=== PATIENT | female | born 1935 | race Caucasian/White ===

== ENCOUNTER → 2017-02-18 | Outpatient (CLI) | payer MEDICARE, BC ==
[~2017-02-18] MED LIST: LEVO200T6 PO; METF500T4 PO; MULT1TAB8 PO; TRIA1TAB PO
--- NOTE | 2017-02-19 10:02 | RADRPT ---
PROCEDURE: XR Knee. CLINICAL INDICATION: Trauma TECHNIQUE: [place] patellar, AP, lateral and oblique view of the right knee were obtained. COMPARISON: There are no similar studies submitted for comparison. FINDINGS: Osteoarthritic changes of the knee are noted with tricompartmental joint space narrowing and osteoph yte formation most prominent along the medial compartment. There is no acute fracture or dislocatio n.No destructive lesion is identified. There is no joint effusion. IMPRESSION: No fracture or dislocation. RPTAT: HIKT .Alphonso Chávez MD, MD Date Time Electronically viewed and signed by .Alphonso Chávez MD, MD on 02/19/2017 00:31 .T/
--- NOTE | 2017-02-19 10:56 | HKNOTE ---
DATE OF SERVICE: 02/18/2017 MAIN COMPLAINT: Pain in the right knee. HISTORY OF MAIN COMPLAINT: The patient is an 81-year-old female, who underwent a left knee replacement which was performed by me in November 2015. She had been extremely pleased with the result of the surgery. She now complains of pain in her right knee. The pain has been present full more than a year, but has become much more severe in the past few months. She saw Dr. Jennings, who injected the knee with cortisone, this did not give her much relief. Dr. Jennings has now referred to me for further evaluation and treatment. The patient complains the knee does not lock, swell, or feel unstable. Pain is aggravated by walking and stair climbing. She does not have rest pain or night pain. She uses a cane most of the time. She has difficulty clipping her toenails and tying her shoelaces. Sporting activities: [employer] 3 times a week (continues with this at present). PAST ORTHOPEDIC HISTORY: Left knee replacement. 11/17/[address] Benjamin Fernandes at [facility]. She has been very pleased with the results of the surgery. PRIOR CORTISONE INTAKE: Multiple cortisone injections in the past into both knees. ALCOHOL INTAKE: Minimal. OTHER JOINT PROBLEMS: None. BLOOD TESTS FOR ARTHRITIS: None. PAST MEDICAL HISTORY: Diabetes. PAST SURGICAL HISTORY: 1. Tonsillectomy in 1990. 2. Appendectomy in 2001. 3. Left replacement in 2012. FAMILY HISTORY: Father at 72 of bowel blockage. Mother at 73 from heart problems. SYSTEMS REVIEW: Excess urination, excess night urination. Diabetes. PHYSICAL EXAMINATION: GENERAL: A fit looking 81-year-old female, she comes in with her daughter. VITAL SIGNS: Height 5 foot 3. Weight 215 pounds. Blood pressure 125/60, temperature 97.6. The patient has an antalgic gait. DIRECTED PHYSICAL EXAMINATION: Both hips show full range of motion without pain. Examination of the right knee: Varus alignment. Extension lacks 15 degrees. Flexion lacks 20 degrees. Marked pain on attempting to exceed that range of motion. 6+ crepitus in the knee and under the patella. Examination of the left knee: A full range of motion. Midline scar of total knee replacement. IMAGING: Plain x-rays of the right knee obtained today were reviewed. These exhibit exceedingly severe degenerative changes of the medial compartment and patellofemoral joint with osteophyte formation, bone on bone contact and subchondral sclerosis. DISCUSSION: A 81-year-old female, in fairly good health who had previously undergone a left knee replacement which was performed by me in 2012. She now has significant symptoms in the opposite knee. She does not get much response to cortisone injected into her knee. MANAGEMENT: Patient is advised that she most certainly will need to have a right knee replacement sooner or later. The patient is anxious to proceed some time in the near future. She will discuss scheduling her surgery with my electrician assistant, Arnulfo. We will need to work around Dr. Jennings's schedule since he will be going out of town on March 10 and returning on the . The patient is very anxious to proceed with the surgery. I spent considerable time discussing with her and her daughter the newer improvements in the technique. She was given on my booklet on knee arthritis and knee replacement surgery. Surgery will be scheduled to be performed in the near future. Dictated By: Benjamin Fernandes MD /[email or web address]/rhona /Document#: [id number]
== END | disposition home or self-care (01) ==
LOC: HKI 13:41
DX: M25.561 Pain in right knee (principal); Z96.652 Presence of left artificial knee joint
CPT/HCPCS: 73562; G0463

== ENCOUNTER → 2017-04-10 | Outpatient (CLI) | payer MEDICARE, BC ==
--- NOTE | 2017-04-13 14:18 | HKNOTE ---
DATE OF SERVICE: 04/10/2017 CHIEF COMPLAINT: Right knee pain. HISTORY OF THE PRESENT ILLNESS: Love is an 81-year-old female who is here for evaluation of her knees. The patient underwent a left total knee replacement some time ago and is doing well with madyson t. Currently, she feels limited by her right knee and is here to discuss her right knee replacement . The right knee pain is constant and increases with weightbearing activities and decreases with re st. She has tried medications and injections without much relief. She uses a cane for support and has been unable to walk long distances. She is considering knee replacement in the near future. PAST MEDICAL HISTORY: Significant for left total knee replacement as well as diabetes. REVIEW OF SYSTEMS: Negative for chest pain, shortness of breath, nausea, vomiting, or diarrhea. PHYSICAL EXAMINATION: This shows a pleasant female. She is awake, alert and oriented. Walks with a slight limp on her right side. The right knee has medial joint line tenderness, mild swelling was noted. Range of motion is 15 to 105 degrees with crepitus. There is mild varus alignment and no n eurovascular deficit. The left knee shows a healed incision with full range of motion. X-rays of t he right knee were done and show advanced osteoarthritis with complete loss of medial joint space an d osteophyte formation especially in the medial and patellofemoral compartment. ASSESSMENT AND PLAN: An 81-year-old female with advanced osteoarthritis of her right knee. The pat ient has failed conservative treatment with medications and injections over the past several months. She would like to proceed with right total knee replacement in the near future. Risks and benefit s of surgery were discussed, implant materials and surgical techniques were discussed. The patient will be scheduled for right knee replacement in the near future. Dictated By: CRISTAL UPTON/NTS Conf#: [id number] DID#: [id number]
== END | disposition home or self-care (01) ==
LOC: HKI 13:43
PROVIDERS: ATTEND Orthopaedic Surgery
DX: M17.11 Unilateral primary osteoarthritis, right knee (principal); E11.9 Type 2 diabetes mellitus without complications; Z96.652 Presence of left artificial knee joint
CPT/HCPCS: G0463

== ENCOUNTER → 2017-05-22 | Outpatient (CLI) | payer MEDICARE, BC ==
[~2017-05-22] MED LIST changes: +ASPI-664 PO; +ATOR40TA68 PO; +EMPA25TA PO; +LINA5TAB PO; +LISI-313 PO; +MAXZ25 PO; +OXYB5TAB22 PO
--- NOTE | 2017-06-13 06:49 | HKNOTE ---
DATE OF SERVICE: 05/22/2017 HISTORY OF PRESENT ILLNESS: Love is 81 years old. She is here for a preoperative visit related to her right total knee replacement that is scheduled for 05/27/2017. PLAN: Risks and benefits of surgical treatment were discussed with the patient including, but not l imited to bleeding, infection, scarring stiffness, injury to nerves and vessels, chronic pain, impla nt failure, need for further surgery. The patient understands and wishes to proceed. Dictated By: CRISTAL MAGUIRE MD UB/NTS Conf#: [id number] DID#: [id number]
== END | disposition home or self-care (01) ==
LOC: HKI 13:44
PROVIDERS: ATTEND Orthopaedic Surgery
DX: Z01.818 Encounter for other preprocedural examination (principal)
CPT/HCPCS: G0463

== ENCOUNTER 2017-05-26 07:30 | Inpatient (IN) | payer MEDICARE, BC ==
[~2017-05-26] VITALS: Ht 160 cm; Wt 98.5 kg
[~2017-05-26 07:30] MED LIST changes: -ASPI-664 PO; -ATOR40TA68 PO; -EMPA25TA PO; -LINA5TAB PO; -LISI-313 PO; -MAXZ25 PO; -OXYB5TAB22 PO
[2017-05-26] MEDS ORDERED: SOD CHLORIDE 0.9% IVPB ONE (18:00)
[2017-05-26] MEDS ORDERED: TRANEXAMIC ACID IVPB ONE (18:00)
[2017-05-27] VITALS (14 sets, daily range): BP systolic 118–153; BP diastolic 52–72; PULSE 75–92; RESP 17–20; Ht 160 cm; Wt 98.5 kg
[2017-05-27] MEDS ORDERED: DEXAMETHASONE 4 MG/ML 1 ML INJ IV SCH (06:00)
[2017-05-27] MEDS ORDERED: SOD CHLORIDE 0.9% IRR SCH ×2 (06:00)
[2017-05-27] MEDS ORDERED: ONDANSETRON 4 MG INJ IV SCH (06:00)
[2017-05-27] MEDS ORDERED: LACTATED RINGER'S 1,000 ML IV* SCH (06:00)
[2017-05-27] MEDS ORDERED: CELECOXIB 200 MG CAP PO SCH (06:00)
[2017-05-27] MEDS ORDERED: SOD CHLORIDE 0.9% IVPB SCH (06:00)
[2017-05-27] MEDS ORDERED: TRANEXAMIC ACID IVPB SCH (06:00)
[2017-05-27] MEDS ORDERED: CEFAZOLIN 2 GM/50 ML (PMX) 50 ML IVPB SCH (06:00)
[2017-05-27] MEDS ORDERED: ACETAMINOPHEN 1000MG/100ML IV 100 ML IVPB SCH (06:00)
[2017-05-27] MEDS ORDERED: LANSOPRAZOLE 30 MG CAP PO SCH (06:00)
[2017-05-27] MEDS ORDERED: TRANEXAMIC ACID IRR SCH ×2 (06:00)
[2017-05-27] MEDS ORDERED: CEFAZOLIN 1 GM INJ ONE (07:00)
[2017-05-27] MEDS ORDERED: ROPIVACAINE 0.2% 60 ML, CLONIDINE 100 MCG, EPINEPHrine 0.3 MG, KETOROLAC 30 MG, SOD CHL... INJ SCH ×5 (11:30)
[2017-05-27] MEDS ORDERED: ATOR40TA68 PO (11:39)
[2017-05-27] MEDS ORDERED: ASPI-664 PO (11:40)
[2017-05-27] MEDS ORDERED: OXYB5TAB22 PO (11:45)
[2017-05-27] MEDS ORDERED: MAXZ25 PO (11:45)
[2017-05-27] MEDS ORDERED: POLYMYXIN B 500000 UNIT INJ ONE (13:48)
[2017-05-27] MEDS ORDERED: MIDAZOLAM 1 MG/ML 2 ML INJ ONE (14:04)
[2017-05-27] MEDS ORDERED: METOCLOPRAMIDE 10 MG INJ ONE (14:04)
[2017-05-27] MEDS ORDERED: PROPOFOL 20 ML ONE (14:04)
[2017-05-27] MEDS ORDERED: ROPIVACAINE 0.5 % 30 ML VIAL ONE (14:04)
[2017-05-27] MEDS ORDERED: DEXAMETHASONE 4 MG/ML 1 ML INJ ONE (14:05)
--- NOTE | 2017-05-27 14:13 | HPN ---
Date/Time of Note Date/Time of Note DATE: 05/27/17 TIME: 14:12 Interval H&P Admission Note Pt. seen H&P reviewed: No system changes MELISSA SOTO MD May 27, 2017 14:13
[2017-05-27] MEDS ORDERED: FENTAnyl 50 MCG/ML VIAL ONE (14:14)
--- NOTE | 2017-05-27 15:41 | PDOCDIS ---
Discharge Instructions DIAGNOSIS Discharge Diagnosis Status Post Right total knee arthroplasty CONDITION Patient Condition: Good HOME CARE INSTRUCTIONS: Diet Instructions: Regular ACTIVITY: Activity Restrictions: Slowly Increase Activity Rest between Activity Avoid heavy lifting No Sexual Activity Do not Drive Do not operate Machinery Do not operate Power Tool Avoid Heavy Housework Keep Limb Elevated (2-3 pillows under the foot and ankle ONLY. May also apply cold therapy to the surgical area over the dressing. ) Weight Bearing (weight bear as tolerated with front wheeled walker) Bathing Restrictions: Shower (Keep Mepilex dressing on until post-op appointment. Keep area clean and dry. No water to the knee. ) FOLLOW UP/APPOINTMENTS Follow-up Plan Follow up at post-op appointment given at your pre-op visit. DEANNA ZAMUDIO PA-C May 27, 2017 15:41
[2017-05-27] MEDS ORDERED: KETOROLAC 15 MG INJ IV PRN (16:00)
[2017-05-27] MEDS ORDERED: NALOXONE (0.4 MG/ML) INJ IV PRN (16:00)
[2017-05-27] MEDS ORDERED: DIPHENHYDRAMINE 50 MG INJ IV PRN (16:00)
[2017-05-27] MEDS ORDERED: MAGNESIUM HYDROXIDE 30ML CUP PO PRN (16:00)
[2017-05-27] MEDS ORDERED: ASPIRIN (EC) 325 MG TAB PO ONE (16:00)
[2017-05-27] MEDS ORDERED: SENNA/DOCUSATE NA (8.6MG/50MG) TAB PO PRN (16:00)
[2017-05-27] MEDS ORDERED: NA PHOSPHATE/BIPHOS 133 ML ENEMA PR PRN (16:00)
[2017-05-27] MEDS ORDERED: ONDANSETRON 4 MG INJ IV PRN (16:00)
[2017-05-27] MEDS ORDERED: DOCUSATE SODIUM 100 MG CAP PO ONE (16:00)
[2017-05-27] MEDS ORDERED: MEPERIDINE 25 MG INJ IV PRN (16:00)
[2017-05-27] MEDS ORDERED: DIPHENHYDRAMINE 50 MG INJ IM PRN (16:00)
[2017-05-27] MEDS ORDERED: morphine (1 MG/ML) 10ML SYRINGE IV PRN ×3 (16:00)
[2017-05-27] MEDS ORDERED: BISACODYL 10 MG SUPP PR PRN (16:00)
[2017-05-27] MEDS ORDERED: oxyCODONE 5 MG TAB PO PRN ×3 (16:00)
[2017-05-27] MEDS ORDERED: BETHANECHOL 25 MG TAB PO PRN (16:00)
--- NOTE | 2017-05-27 16:08 | RADRPT ---
PROCEDURE: XR Knee. CLINICAL INDICATION: RT KNEE REPLACEMENT TECHNIQUE: AP the right knee was obtained. The image was reviewed on a PACS workstation. COMPARISON: None. FINDINGS: Postoperative or intraoperative view demonstrates right knee hardware placement, with a plate along the tibial plateau, and hardware in the medial and lateral femoral condyles. Hardware appears intact and in appropriate position. Soft tissue structures appear within normal limits. IMPRESSION: Hardware placement as described for knee arthroplasty. Near anatomic alignment on single AP view. RPTAT: HBST .Chaka Inman MD, MD Date Time Electronically viewed and signed by .Chaka Inman MD, on 05/27/2017 16:07 .T/
--- NOTE | 2017-05-27 16:36 | SIPON ---
Date/Time of Note Date/Time of Note DATE: 05/27/17 TIME: 16:34 Operative Report Preoperative Diagnosis right knee DJD Postoperative Diagnosis same Operation/Procedure Performed right TKA Surgeon see signature line hospital medical assistant Dr. Dereje Shaikh Second assist: DEANNA ZAMUDIO PA-C Anesthesia: spinal Estimated blood loss: 150 - 200 ml's Transfusion Required none Specimen bone Grafts/Implants DePuy 6 femur, 5 tibia, 7 poly, 35 patella Complications none CRISTAL MAGUIRE May 27, 2017 16:36
--- NOTE | 2017-05-27 16:41 | OPR ---
Date/Time of Note Date/Time of Note DATE: 05/27/17 TIME: 16:36 Operative Report Procedure Date: May 27, 2017 Preoperative Diagnosis Right knee osteoarthritis Postoperative Diagnosis Same Operation/Procedure Performed Right total knee replacement Surgeon see signature line Building Inspector Dereje Shaikh Second Building Inspector: DEANNA ZAMUDIO PA-C Anesthesia Type: spinal Estimated Blood Loss: 150 - 200 ml's Transfusion none Specimen Bone Grafts/Implants depuy size 6 femur, size 5 tibia, 7 mm polyethylene, 35 mm patella Tubes/Drains None Complications none Pt Condition Post Procedure: stable Disposition: PACU Indications The patient is an 81-year-old female with advanced osteoarthritis of her right knee that has not responded to conservative treatment Procedure Description Patient was placed supine on the operating room table. The right lower extremity was prepped and draped in usual manner. Preoperative antibiotics were administered. An anterior approach to the right knee was made. A mid vastus approach was made and the patella displaced laterally without everting it. Advanced osteoarthritis was encountered in the right knee. Using intramedullary alignment, the distal femoral cut was made in 5 of valgus. The femur was measured to be a size 6 from the ByRead knee system. Size 6 cutting block was placed in slight external rotation. Anterior posterior and chamfer cuts were made. The notch was cut in the distal femur to accommodate the posterior stabilized femoral component. PCL was sacrificed. Remnants of the menisci were removed. The tibia was cut using external alignment and the patella cut using a freehand technique. Trials were inserted including a size 6 femur size 5 tibia 35 patella and 7 mm of polyethylene. This resulted in a stable knee from 0-120 with good balance and tracking. The trials were then removed. X-rays were obtained prior to removal of trials and alignment confirmed. The trials were removed and the knee thoroughly irrigated. The knee was injected with Toradol and Marcaine. Hemostasis was confirmed and final implants were cemented in place including 6 narrow femur, 5 tibia, 7 mm of polyethylene, and 35 mm patella. The knee was stable from 0-120 with good balance and tracking. The knee was thoroughly irrigated and closed in layers using #1 Vicryl for arthrotomy and fascia, 2-0 Vicryl for subcutaneous tissue, 3 -0 Monocryl for the skin. She was transferred to the recovery room in stable condition CRISTAL MAGUIRE May 27, 2017 16:41
[2017-05-27] MEDS: ONDANSETRON 4 MG INJ IV SCH ×2 (17:35→21:58)
[2017-05-27] MEDS: CEFAZOLIN 1 GM/50 ML (PMX) 50 ML IVPB SCH (17:35)
[2017-05-27] MEDS: SOD CHLORIDE 0.9% 1,000 ML IV SCH (20:50)
[2017-05-27] MEDS ORDERED: ZOLPIDEM 5 MG TAB PO PRN (21:00)
[2017-05-27] MEDS: OXYBUTYNIN (XL) 5 MG TAB PO SCH (21:00)
[2017-05-27] MEDS: metFORMIN 500 MG TAB PO SCH (21:58)
[2017-05-27] MEDS: ATORVASTATIN 40 MG TAB PO SCH (21:58)
[2017-05-28] MEDS: CEFAZOLIN 1 GM/50 ML (PMX) 50 ML IVPB SCH ×2 (00:31→08:50)
[2017-05-28] MEDS ORDERED: GLUCAGON 1 MG INJ IM PRN (01:15)
[2017-05-28] MEDS ORDERED: GLUCOSE GEL 15 GRAM TUBE PO PRN ×2 (01:15)
[2017-05-28] MEDS ORDERED: DEXTROSE 50% 50 ML SYRINGE IV PRN ×2 (01:15)
[2017-05-28] MEDS ORDERED: GLUCOSE GEL 15 GRAM TUBE BUCCAL PRN (01:15)
[2017-05-28] MEDS ORDERED: ACCU-CHEK XX SCH (02:00)
[2017-05-28] MEDS: ONDANSETRON 4 MG INJ IV SCH ×2 (04:00→09:54)
[2017-05-28] MEDS: SOD CHLORIDE 0.9% 1,000 ML IV SCH ×2 (04:04→16:44)
[2017-05-28 05:25] LABS: BASOPHILS % 0.1 % (0.0-2.0); HEMATOCRIT 37.1 % (37.0-47.0); HEMOGLOBIN 12.1 g/dl (12.0-16.0); LYMPHOCYTES # 1.3 10^3/ul (0.8-2.9); LYMPHOCYTES % 8.3 % (15.0-51.0); MEAN CORPUSCULAR HEMOGLOBIN 29.6 pg (29.0-33.0); MEAN CORPUSCULAR HGB CONC 32.6 g/dl (32.0-37.0); MEAN CORPUSCULAR VOLUME 90.7 fl (82.0-101.0); MEAN PLATELET VOLUME 11.2 fl (7.4-10.4); MONOCYTE # 0.9 10^3/ul (0.3-0.9); MONOCYTES % 5.9 % (0.0-11.0); NEUTROPHIL # 12.9 10^3/ul (1.6-7.5); NEUTROPHILS % 85.1 % (39.0-77.0); PLATELET COUNT 263 10^3/UL (140-415); RED BLOOD COUNT 4.09 10^6/ul (4.20-5.40); RED CELL DISTRIBUTION WIDTH 14.6 % (11.5-14.5); WHITE BLOOD COUNT 15.1 10^3/ul (4.8-10.8)
[2017-05-28 05:44] LABS: CALCIUM 8.1 mg/dl (8.4-10.2); CREATININE 0.85 mg/dl (0.44-1.00); POTASSIUM 4.3 mmol/L (3.5-5.1)
[2017-05-28 07:52] VITALS: BP 125/75; RESP 19
[2017-05-28] MEDS: DOCUSATE SODIUM 100 MG CAP PO SCH ×2 (08:50→20:40)
[2017-05-28] MEDS: ACCU-CHEK XX SCH ×4 (08:50→21:00)
[2017-05-28] MEDS: FERROUS FUMARATE (SR) TAB PO SCH ×2 (08:51→20:41)
[2017-05-28] MEDS: LEVOTHYROXINE 100 MCG TAB PO SCH (08:51)
[2017-05-28] MEDS: CELECOXIB 200 MG CAP PO SCH ×2 (08:51→20:38)
[2017-05-28] MEDS: ASPIRIN (EC) 325 MG TAB PO SCH (08:51)
[2017-05-28] MEDS: TRIAMTERENE/HCTZ (37.5-25) CAP PO SCH (08:52)
[2017-05-28] MEDS: INSULIN ASPART [NOVOLOG] 3 ML PEN SC SCH ×4 (09:55→20:45)
--- NOTE | 2017-05-28 11:09 | CONS ---
Date/Time of Note Date/Time of Note DATE: 05/28/17 TIME: 11:01 Consult Date/Type/Reason Admit Date/Time May 27, 2017 at 10:56 am Initial Consult Date Type of Consultation: internal medicine Reason for Consultation pre-op and post op evaluation and clearance Ordering Provider: CRISTAL MAGUIRE Subjective doing well no complaints glucose elevated today Objective Vital Signs Date Time Temp Pulse Resp B/P Pulse Ox O2 Delivery O2 Flow Rate FiO2 05/28/17 07:52 98.2 79 19 125/75 98 05/27/17 20:30 Nasal Cannula 05/27/17 19:02 2.0 Intake and Output 05/27/17 05/27/17 05/28/17 15:00 23:00 07:00 Intake Total 1000 ml 1250 ml Output Total 200 ml 1150 ml Balance 800 ml 100 ml Exam vss heent negative lungs clear heart regular rhythm abdomen soft Results/Medications Result Diagram: 05/28/17 0454 05/28/17 0454 Results 24 hrs Laboratory Tests Test 05/27/17 13:13 05/27/17 17:19 05/27/17 20:52 05/28/17 04:54 Bedside Glucose 153 217 235 H White Blood Count 15.1 #H Red Blood Count 4.09 L Hemoglobin 12.1 Hematocrit 37.1 Mean Corpuscular Volume 90.7 Mean Corpuscular Hemoglobin 29.6 Mean Corpuscular Hemoglobin Concent 32.6 Red Cell Distribution Width 14.6 H Platelet Count 263 Mean Platelet Volume 11.2 #H Neutrophils % 85.1 H Lymphocytes % 8.3 L Monocytes % 5.9 Eosinophils % 0.0 Basophils % 0.1 Nucleated Red Blood Cells % 0.0 Neutrophils # 12.9 H Lymphocytes # 1.3 Monocytes # 0.9 Eosinophils # 0.0 Basophils # 0.0 Nucleated Red Blood Cells # 0.0 Sodium Level 139 Potassium Level 4.3 Chloride Level 106 Carbon Dioxide Level 21 Anion Gap 16 Blood Urea Nitrogen 23 H Creatinine 0.85 Glucose Level 334 H Calcium Level 8.1 L Test 05/28/17 08:44 Bedside Glucose 304 H Medications Current Medications Sodium Chloride (NS) 1,000 ml @ 80 mls/hr [id number] IV Last administered on t 20:50; Admin Dose 80 MLS/HR; Start 05/27/17 at 15:44 Oxycodone HCl (Roxicodone) 20 mg Q3H PRN PO PAIN LEVEL 8-10; Start 05/27/17 at 16:00 Oxycodone HCl (Roxicodone) 10 mg Q3H PRN PO PAIN LEVEL 4-7; Start 05/27/17 at 16:00 Oxycodone HCl (Roxicodone) 5 mg Q3H PRN PO PAIN LEVEL 1-3; Start 05/27/17 at 16:00 Zolpidem Tartrate (Ambien) 5 mg HS PRN PO INSOMNIA; Start 05/27/17 at 21:00 Aspirin (Ecotrin) 325 mg DAILY PO Last administered on 05/28/17 08:51; Admin Dose 325 MG; Start 05/28/17 at 09:00 Celecoxib (Celebrex) 100 mg BID PO Last administered on 05/28/17 08:51; Admin Dose 100 MG; Start 05/28/17 at 09:00 Pantoprazole (Protonix Tab) 40 mg DAILY@06 PO ; Start 05/29/17 at 06:00 Docusate Sodium/ Ferrous Fumarate (Ima-Sequels) 1 tab BID PO Last administered on 05/28/17 08:51; Admin Dose 1 TAB; Start 05/28/17 at 09:00 Docusate Sodium (Colace) 200 mg BID PO Last administered on 05/28/17 08:50; Admin Dose 200 MG; Start 05/28/17 at 09:00; Stop 05/31/17 at 08:59 Simethicone (Mylicon) 80 mg TID PRN PO DISTENSION/GAS/BLOATING; Start at 16:00 Senna/Docusate Sodium (Senokot-S) 2 tab BID PRN PO CONSTIPATION; Start at 16:00 Magnesium Hydroxide (Milk Of Mag) 30 ml HS PRN PO CONSTIPATION; Start at 16:00 Bisacodyl (Dulcolax Supp) 10 mg DAILY PRN [place] CONSTIPATION; Start 05/27/17 at 16:00 Sodium Biphosphate/ Sodium Phosphate (Fleet Enema) 133 ml DAILY PRN [place] CONSTIPATION; Start 05/27/17 at 16:00 Diphenhydramine HCl (Benadryl) 25 mg Q4H PRN IM ITCHING OR RASH; Start at 16:00 Ketorolac Tromethamine (Toradol) 15 mg Q6 PRN IV PAIN; Start 05/27/17 at 16:00 ; Stop 05/31/17 at 15:59 Naloxone HCl (Narcan) 0.2 mg Q2M PRN IV DECREASED REPIRATORY RATE; Start at 16:00 Atorvastatin Calcium (Lipitor) 40 mg QHS PO Last administered on 05/27/17 21: 58; Admin Dose 40 MG; Start 05/27/17 at 21:00 Levothyroxine Sodium (Synthroid) 200 mcg DAILY PO Last administered on 08:51; Admin Dose 200 MCG; Start 05/28/17 at 09:00 Metformin HCl (Glucophage) 1,000 mg HS PO Last administered on 05/27/17 21:58 ; Admin Dose 1,000 MG; Start 05/27/17 at 21:00 Oxybutynin Chloride (Ditropan Xl) 5 mg QHS PO ; Start 05/27/17 at 21:00 Triamterene/HCTZ (Dyazide) 1 cap DAILY PO Last administered on 05/28/17 08:52 ; Admin Dose 1 CAP; Start 05/28/17 at 09:00 Miscellaneous Information 1 ea NOTE XX ; Start 05/28/17 at 01:15 Glucose (Glutose) 15 gm Q15M PRN PO DECREASED GLUCOSE; Start 05/28/17 at 01:15 Glucose (Glutose) 22.5 gm Q15M PRN PO DECREASED GLUCOSE; Start 05/28/17 at 01: 15 Dextrose (D50w Syringe) 25 ml Q15M PRN IV DECREASED GLUCOSE; Start 05/28/17 at 01:15 Dextrose (D50w Syringe) 50 ml Q15M PRN IV DECREASED GLUCOSE; Start 05/28/17 at 01:15 Glucagon (Glucagen) 1 mg Q15M PRN IM DECREASED GLUCOSE; Start 05/28/17 at 01: 15 Glucose (Glutose) 15 gm Q15M PRN BUCCAL DECREASED GLUCOSE; Start 05/28/17 at 01:15 Diagnostic Test (Pha) (Accu-Chek) 1 ea 02 XX ; Start 05/29/17 at 02:00 Assessment/Plan Chief Complaint/Hosp Course patient post op total knee replacement doing well from surgical standpoint.DM could be under better control insulin coverage ordered and diet switched to diabetic diet Problems: Additional Assessment/Plan patient ambulating well with pt management per ortho will follow thank you BRANDON Valadez MD May 28, 2017 11:09 am
--- NOTE | 2017-05-28 11:24 | PN ---
Date/Time of Note Date/Time of Note DATE: 05/28/17 TIME: :22 Assessment/Plan VTE Prophylaxis VTE Prophylaxis Intervention: ambulation, anti-embolic stocking, SCD's Lines/Catheters IV Catheter Type (from Nrsg): Saline Lock Urinary Cath still in place: No Subjective 24 Hr Interval Summary Free Text/Dictation Love is doing well after right total knee replacement. She is ambulatory with physical therapy. Pain is controlled with oral pain medication. The dressing is intact and dry. Range of motion of the right knee is 10-80. She would like to go home on Thursday morning. This will be arranged along with home health. Exam/Review of Systems Vital Signs Vitals Vital Signs Date Time Temp Pulse Resp B/P Pulse Ox O2 Delivery O2 Flow Rate FiO2 05/28/17 07:52 98.2 79 19 125/75 98 05/27/17 20:30 Nasal Cannula 05/27/17 19:02 2.0 Intake and Output 05/27/17 05/27/17 05/28/17 15:00 23:00 07:00 Intake Total 1000 ml 1250 ml Output Total 200 ml 1150 ml Balance 800 ml 100 ml Results Result Diagram: 05/28/17 0454 05/28/17 0454 Results 24 hrs Laboratory Tests Test 05/27/17 13:13 05/27/17 17:19 05/27/17 20:52 05/28/17 04:54 Bedside Glucose 153 217 235 H White Blood Count 15.1 #H Red Blood Count 4.09 L Hemoglobin 12.1 Hematocrit 37.1 Mean Corpuscular Volume 90.7 Mean Corpuscular Hemoglobin 29.6 Mean Corpuscular Hemoglobin Concent 32.6 Red Cell Distribution Width 14.6 H Platelet Count 263 Mean Platelet Volume 11.2 #H Neutrophils % 85.1 H Lymphocytes % 8.3 L Monocytes % 5.9 Eosinophils % 0.0 Basophils % 0.1 Nucleated Red Blood Cells % 0.0 Neutrophils # 12.9 H Lymphocytes # 1.3 Monocytes # 0.9 Eosinophils # 0.0 Basophils # 0.0 Nucleated Red Blood Cells # 0.0 Sodium Level 139 Potassium Level 4.3 Chloride Level 106 Carbon Dioxide Level 21 Anion Gap 16 Blood Urea Nitrogen 23 H Creatinine 0.85 Glucose Level 334 H Calcium Level 8.1 L Test 05/28/17 08:44 Bedside Glucose 304 H Medications Medications Current Medications Sodium Chloride (NS) 1,000 ml @ 80 mls/hr [id number] IV Last administered on 20:50; Admin Dose 80 MLS/HR; Start 05/27/17 at 15:44 Oxycodone HCl (Roxicodone) 20 mg Q3H PRN PO PAIN LEVEL 8-10; Start 05/27/17 at 16:00 Oxycodone HCl (Roxicodone) 10 mg Q3H PRN PO PAIN LEVEL 4-7; Start 05/27/17 at 16:00 Oxycodone HCl (Roxicodone) 5 mg Q3H PRN PO PAIN LEVEL 1-3; Start 05/27/17 at 16:00 Zolpidem Tartrate (Ambien) 5 mg HS PRN PO INSOMNIA; Start 05/27/17 at 21:00 Aspirin (Ecotrin) 325 mg DAILY PO Last administered on 05/28/17 08:51; Admin Dose 325 MG; Start 05/28/17 at 09:00 Celecoxib (Celebrex) 100 mg BID PO Last administered on 05/28/17 08:51; Admin Dose 100 MG; Start 05/28/17 at 09:00 Pantoprazole (Protonix Tab) 40 mg DAILY@06 PO ; Start 05/29/17 at 06:00 Docusate Sodium/ Ferrous Fumarate (Iam-Sequels) 1 tab BID PO Last administered on 05/28/17 08:51; Admin Dose 1 TAB; Start 05/28/17 at 09:00 Docusate Sodium (Colace) 200 mg BID PO Last administered on 05/28/17 08:50; Admin Dose 200 MG; Start 05/28/17 at 09:00; Stop 05/31/17 at 08:59 Simethicone (Mylicon) 80 mg TID PRN PO DISTENSION/GAS/BLOATING; Start at 16:00 Senna/Docusate Sodium (Senokot-S) 2 tab BID PRN PO CONSTIPATION; Start at 16:00 Magnesium Hydroxide (Milk Of Mag) 30 ml HS PRN PO CONSTIPATION; Start at 16:00 Bisacodyl (Dulcolax Supp) 10 mg DAILY PRN [place] CONSTIPATION; Start 05/27/17 at 16:00 Sodium Biphosphate/ Sodium Phosphate (Fleet Enema) 133 ml DAILY PRN [place] CONSTIPATION; Start 05/27/17 at 16:00 Diphenhydramine HCl (Benadryl) 25 mg Q4H PRN IM ITCHING OR RASH; Start at 16:00 Ketorolac Tromethamine (Toradol) 15 mg Q6 PRN IV PAIN; Start 05/27/17 at 16:00 ; Stop 05/31/17 at 15:59 Naloxone HCl (Narcan) 0.2 mg Q2M PRN IV DECREASED REPIRATORY RATE; Start at 16:00 Atorvastatin Calcium (Lipitor) 40 mg QHS PO Last administered on 05/27/17 21: 58; Admin Dose 40 MG; Start 05/27/17 at 21:00 Levothyroxine Sodium (Synthroid) 200 mcg DAILY PO Last administered on 08:51; Admin Dose 200 MCG; Start 05/28/17 at 09:00 Metformin HCl (Glucophage) 1,000 mg HS PO Last administered on 05/27/17 21:58 ; Admin Dose 1,000 MG; Start 05/27/17 at 21:00 Oxybutynin Chloride (Ditropan Xl) 5 mg QHS PO ; Start 05/27/17 at 21:00 Triamterene/HCTZ (Dyazide) 1 cap DAILY PO Last administered on 05/28/17 08:52 ; Admin Dose 1 CAP; Start 05/28/17 at 09:00 Miscellaneous Information 1 ea NOTE XX ; Start 05/28/17 at 01:15 Glucose (Glutose) 15 gm Q15M PRN PO DECREASED GLUCOSE; Start 05/28/17 at 01:15 Glucose (Glutose) 22.5 gm Q15M PRN PO DECREASED GLUCOSE; Start 05/28/17 at 01: 15 Dextrose (D50w Syringe) 25 ml Q15M PRN IV DECREASED GLUCOSE; Start 05/28/17 at 01:15 Dextrose (D50w Syringe) 50 ml Q15M PRN IV DECREASED GLUCOSE; Start 05/28/17 at 01:15 Glucagon (Glucagen) 1 mg Q15M PRN IM DECREASED GLUCOSE; Start 05/28/17 at 01: 15 Glucose (Glutose) 15 gm Q15M PRN BUCCAL DECREASED GLUCOSE; Start 05/28/17 at 01:15 Diagnostic Test (Pha) (Accu-Chek) 1 ea 02 XX ; Start 05/29/17 at 02:00 CRISTAL MAGUIRE May 28, 2017 11:24
--- NOTE | 2017-05-28 11:37 | PN ---
Date/Time of Note Date/Time of Note DATE: 05/28/17 TIME: 11:35 Assessment/Plan VTE Prophylaxis VTE Prophylaxis Intervention: SCD's Lines/Catheters IV Catheter Type (from Nrsg): Saline Lock Urinary Cath still in place: No Subjective 24 Hr Interval Summary Free Text/Dictation addendum to dr gonzáles note the blood sugars are running high, has been on metformin at home, but after dexamethasone needing low intensity novolog, will continue to follow, expect steroid effect to wear off before dc alert, has walked well and gone to toilet bp is ok Exam/Review of Systems Vital Signs Vitals Vital Signs Date Time Temp Pulse Resp B/P Pulse Ox O2 Delivery O2 Flow Rate FiO2 05/28/17 07:52 98.2 79 19 125/75 98 05/27/17 20:30 Nasal Cannula 05/27/17 19:02 2.0 Intake and Output 05/27/17 05/27/17 05/28/17 15:00 23:00 07:00 Intake Total 1000 ml 1250 ml Output Total 200 ml 1150 ml Balance 800 ml 100 ml Results Result Diagram: 05/28/17 0454 05/28/17 0454 Results 24 hrs Laboratory Tests Test 05/27/17 13:13 05/27/17 17:19 05/27/17 20:52 05/28/17 04:54 Bedside Glucose 153 217 235 H White Blood Count 15.1 #H Red Blood Count 4.09 L Hemoglobin 12.1 Hematocrit 37.1 Mean Corpuscular Volume 90.7 Mean Corpuscular Hemoglobin 29.6 Mean Corpuscular Hemoglobin Concent 32.6 Red Cell Distribution Width 14.6 H Platelet Count 263 Mean Platelet Volume 11.2 #H Neutrophils % 85.1 H Lymphocytes % 8.3 L Monocytes % 5.9 Eosinophils % 0.0 Basophils % 0.1 Nucleated Red Blood Cells % 0.0 Neutrophils # 12.9 H Lymphocytes # 1.3 Monocytes # 0.9 Eosinophils # 0.0 Basophils # 0.0 Nucleated Red Blood Cells # 0.0 Sodium Level 139 Potassium Level 4.3 Chloride Level 106 Carbon Dioxide Level 21 Anion Gap 16 Blood Urea Nitrogen 23 H Creatinine 0.85 Glucose Level 334 H Calcium Level 8.1 L Test 05/28/17 08:44 Bedside Glucose 304 H Medications Medications Current Medications Sodium Chloride (NS) 1,000 ml @ 80 mls/hr [id number] IV Last administered on 20:50; Admin Dose 80 MLS/HR; Start 05/27/17 at 15:44 Oxycodone HCl (Roxicodone) 20 mg Q3H PRN PO PAIN LEVEL 8-10; Start 05/27/17 at 16:00 Oxycodone HCl (Roxicodone) 10 mg Q3H PRN PO PAIN LEVEL 4-7; Start 05/27/17 at 16:00 Oxycodone HCl (Roxicodone) 5 mg Q3H PRN PO PAIN LEVEL 1-3; Start 05/27/17 at 16:00 Zolpidem Tartrate (Ambien) 5 mg HS PRN PO INSOMNIA; Start 05/27/17 at 21:00 Aspirin (Ecotrin) 325 mg DAILY PO Last administered on 05/28/17 08:51; Admin Dose 325 MG; Start 05/28/17 at 09:00 Celecoxib (Celebrex) 100 mg BID PO Last administered on 05/28/17 08:51; Admin Dose 100 MG; Start 05/28/17 at 09:00 Pantoprazole (Protonix Tab) 40 mg DAILY@06 PO ; Start 05/29/17 at 06:00 Docusate Sodium/ Ferrous Fumarate (Iam-Sequels) 1 tab BID PO Last administered on 05/28/17 08:51; Admin Dose 1 TAB; Start 05/28/17 at 09:00 Docusate Sodium (Colace) 200 mg BID PO Last administered on 05/28/17 08:50; Admin Dose 200 MG; Start 05/28/17 at 09:00; Stop 05/31/17 at 08:59 Simethicone (Mylicon) 80 mg TID PRN PO DISTENSION/GAS/BLOATING; Start at 16:00 Senna/Docusate Sodium (Senokot-S) 2 tab BID PRN PO CONSTIPATION; Start at 16:00 Magnesium Hydroxide (Milk Of Mag) 30 ml HS PRN PO CONSTIPATION; Start at 16:00 Bisacodyl (Dulcolax Supp) 10 mg DAILY PRN [place] CONSTIPATION; Start 05/27/17 at 16:00 Sodium Biphosphate/ Sodium Phosphate (Fleet Enema) 133 ml DAILY PRN [place] CONSTIPATION; Start 05/27/17 at 16:00 Diphenhydramine HCl (Benadryl) 25 mg Q4H PRN IM ITCHING OR RASH; Start at 16:00 Ketorolac Tromethamine (Toradol) 15 mg Q6 PRN IV PAIN; Start 05/27/17 at 16:00 ; Stop 05/31/17 at 15:59 Naloxone HCl (Narcan) 0.2 mg Q2M PRN IV DECREASED REPIRATORY RATE; Start at 16:00 Atorvastatin Calcium (Lipitor) 40 mg QHS PO Last administered on 05/27/17 21: 58; Admin Dose 40 MG; Start 05/27/17 at 21:00 Levothyroxine Sodium (Synthroid) 200 mcg DAILY PO Last administered on 08:51; Admin Dose 200 MCG; Start 05/28/17 at 09:00 Metformin HCl (Glucophage) 1,000 mg HS PO Last administered on 05/27/17 21:58 ; Admin Dose 1,000 MG; Start 05/27/17 at 21:00 Oxybutynin Chloride (Ditropan Xl) 5 mg QHS PO ; Start 05/27/17 at 21:00 Triamterene/HCTZ (Dyazide) 1 cap DAILY PO Last administered on 05/28/17 08:52 ; Admin Dose 1 CAP; Start 05/28/17 at 09:00 Miscellaneous Information 1 ea NOTE XX ; Start 05/28/17 at 01:15 Glucose (Glutose) 15 gm Q15M PRN PO DECREASED GLUCOSE; Start 05/28/17 at 01:15 Glucose (Glutose) 22.5 gm Q15M PRN PO DECREASED GLUCOSE; Start 05/28/17 at 01: 15 Dextrose (D50w Syringe) 25 ml Q15M PRN IV DECREASED GLUCOSE; Start 05/28/17 at 01:15 Dextrose (D50w Syringe) 50 ml Q15M PRN IV DECREASED GLUCOSE; Start 05/28/17 at 01:15 Glucagon (Glucagen) 1 mg Q15M PRN IM DECREASED GLUCOSE; Start 05/28/17 at 01: 15 Glucose (Glutose) 15 gm Q15M PRN BUCCAL DECREASED GLUCOSE; Start 05/28/17 at 01:15 Diagnostic Test (Pha) (Accu-Chek) 1 ea 02 XX ; Start 05/29/17 at 02:00 RICHY AGUILERA MD May 28, 2017 11:37
--- NOTE | 2017-05-28 14:37 | CONS ---
Date/Time of Note Date/Time of Note DATE: 05/28/17 TIME: 14:33 Assessment/Plan Assessment/Plan Additional Assessment/Plan Status post knee surgery 05/27/2017 Hypertension Diabetes -Patient has done well status post surgery yesterday and ambulating today without symptoms of shortness of breath, dizziness or chest pain. Blood pressure trend has been overall been well controlled. No new cardiac orders at the current time. Consultation Date/Type/Reason Admit Date/Time May 27, 2017 at 10:56 am Type of Consultation: cv Reason for Consultation Cardiology evaluation Hx of Present Illness This is an 81-year-old female with history of hypertension, diabetes who is status post elective knee surgery. Patient underwent the procedure yesterday . She currently denies any chest pain, shortness of breath, palpitations or dizziness. She was ambulating with physical therapy today without any symptoms as mentioned above. 12 point review of systems was performed with all pertinent positives and negatives mentioned above and all else is negative Past Medical History Arthritis Medical History: diabetes, hypertension Past Surgical History Orthopedic procedures Family History Significant Family History: no pertinent family hx Exam/Review of Systems Vital Signs Vitals Vital Signs Date Time Temp Pulse Resp B/P Pulse Ox O2 Delivery O2 Flow Rate FiO2 05/28/17 07:52 98.2 79 19 125/75 98 05/27/17 20:30 Nasal Cannula 05/27/17 19:02 2.0 Intake and Output 05/27/17 05/27/17 05/28/17 15:00 23:00 07:00 Intake Total 1000 ml 1250 ml Output Total 200 ml 1150 ml Balance 800 ml 100 ml Exam No apparent distress Constitutional: alert, obese, oriented Head: normocephalic Neck: supple Respiratory: clear to auscultation, normal air movement Cardiovascular: other (S1-S2 heard), regular rate and rhythm Gastrointestinal: bowel sounds, non-tender, soft Extremities: edema (Trace) Results Result Diagram: 05/28/17 0454 05/28/17 0454 Results 24 hrs Laboratory Tests Test 05/27/17 17:19 05/27/17 20:52 05/28/17 04:54 05/28/17 08:44 Bedside Glucose 217 235 H 304 H White Blood Count 15.1 #H Red Blood Count 4.09 L Hemoglobin 12.1 Hematocrit 37.1 Mean Corpuscular Volume 90.7 Mean Corpuscular Hemoglobin 29.6 Mean Corpuscular Hemoglobin Concent 32.6 Red Cell Distribution Width 14.6 H Platelet Count 263 Mean Platelet Volume 11.2 #H Neutrophils % 85.1 H Lymphocytes % 8.3 L Monocytes % 5.9 Eosinophils % 0.0 Basophils % 0.1 Nucleated Red Blood Cells % 0.0 Neutrophils # 12.9 H Lymphocytes # 1.3 Monocytes # 0.9 Eosinophils # 0.0 Basophils # 0.0 Nucleated Red Blood Cells # 0.0 Sodium Level 139 Potassium Level 4.3 Chloride Level 106 Carbon Dioxide Level 21 Anion Gap 16 Blood Urea Nitrogen 23 H Creatinine 0.85 Glucose Level 334 H Calcium Level 8.1 L Test 05/28/17 12:45 Bedside Glucose 259 H Medications Medications Current Medications Sodium Chloride (NS) 1,000 ml @ 80 mls/hr [id number] IV Last administered on 20:50; Admin Dose 80 MLS/HR; Start 05/27/17 at 15:44 Oxycodone HCl (Roxicodone) 20 mg Q3H PRN PO PAIN LEVEL 8-10; Start 05/27/17 at 16:00 Oxycodone HCl (Roxicodone) 10 mg Q3H PRN PO PAIN LEVEL 4-7; Start 05/27/17 at 16:00 Oxycodone HCl (Roxicodone) 5 mg Q3H PRN PO PAIN LEVEL 1-3; Start 05/27/17 at 16:00 Zolpidem Tartrate (Ambien) 5 mg HS PRN PO INSOMNIA; Start 05/27/17 at 21:00 Aspirin (Ecotrin) 325 mg DAILY PO Last administered on 05/28/17 08:51; Admin Dose 325 MG; Start 05/28/17 at 09:00 Celecoxib (Celebrex) 100 mg BID PO Last administered on 05/28/17 08:51; Admin Dose 100 MG; Start 05/28/17 at 09:00 Pantoprazole (Protonix Tab) 40 mg DAILY@06 PO ; Start 05/29/17 at 06:00 Docusate Sodium/ Ferrous Fumarate (Iam-Sequels) 1 tab BID PO Last administered on 05/28/17 08:51; Admin Dose 1 TAB; Start 05/28/17 at 09:00 Docusate Sodium (Colace) 200 mg BID PO Last administered on 05/28/17 08:50; Admin Dose 200 MG; Start 05/28/17 at 09:00; Stop 05/31/17 at 08:59 Simethicone (Mylicon) 80 mg TID PRN PO DISTENSION/GAS/BLOATING; Start at 16:00 Senna/Docusate Sodium (Senokot-S) 2 tab BID PRN PO CONSTIPATION; Start at 16:00 Magnesium Hydroxide (Milk Of Mag) 30 ml HS PRN PO CONSTIPATION; Start at 16:00 Bisacodyl (Dulcolax Supp) 10 mg DAILY PRN [place] CONSTIPATION; Start 05/27/17 at 16:00 Sodium Biphosphate/ Sodium Phosphate (Fleet Enema) 133 ml DAILY PRN [place] CONSTIPATION; Start 05/27/17 at 16:00 Diphenhydramine HCl (Benadryl) 25 mg Q4H PRN IM ITCHING OR RASH; Start at 16:00 Ketorolac Tromethamine (Toradol) 15 mg Q6 PRN IV PAIN; Start 05/27/17 at 16:00 ; Stop 05/31/17 at 15:59 Naloxone HCl (Narcan) 0.2 mg Q2M PRN IV DECREASED REPIRATORY RATE; Start at 16:00 Atorvastatin Calcium (Lipitor) 40 mg QHS PO Last administered on 05/27/17 21: 58; Admin Dose 40 MG; Start 05/27/17 at 21:00 Levothyroxine Sodium (Synthroid) 200 mcg DAILY PO Last administered on 08:51; Admin Dose 200 MCG; Start 05/28/17 at 09:00 Metformin HCl (Glucophage) 1,000 mg HS PO Last administered on 05/27/17 21:58 ; Admin Dose 1,000 MG; Start 05/27/17 at 21:00 Oxybutynin Chloride (Ditropan Xl) 5 mg QHS PO ; Start 05/27/17 at 21:00 Triamterene/HCTZ (Dyazide) 1 cap DAILY PO Last administered on 05/28/17 08:52 ; Admin Dose 1 CAP; Start 05/28/17 at 09:00 Miscellaneous Information 1 ea NOTE XX ; Start 05/28/17 at 01:15 Glucose (Glutose) 15 gm Q15M PRN PO DECREASED GLUCOSE; Start 05/28/17 at 01:15 Glucose (Glutose) 22.5 gm Q15M PRN PO DECREASED GLUCOSE; Start 05/28/17 at 01: 15 Dextrose (D50w Syringe) 25 ml Q15M PRN IV DECREASED GLUCOSE; Start 05/28/17 at 01:15 Dextrose (D50w Syringe) 50 ml Q15M PRN IV DECREASED GLUCOSE; Start 05/28/17 at 01:15 Glucagon (Glucagen) 1 mg Q15M PRN IM DECREASED GLUCOSE; Start 05/28/17 at 01: 15 Glucose (Glutose) 15 gm Q15M PRN BUCCAL DECREASED GLUCOSE; Start 05/28/17 at 01:15 Diagnostic Test (Pha) (Accu-Chek) 1 ea 02 XX ; Start 05/29/17 at 02:00 Gorge Hammer DO May 28, 2017 14:37
[2017-05-28 19:55] VITALS: BP 152/70; RESP 22
[2017-05-28] MEDS: OXYBUTYNIN (XL) 5 MG TAB PO SCH (20:39)
[2017-05-28] MEDS: ATORVASTATIN 40 MG TAB PO SCH (20:39)
[2017-05-28] MEDS: metFORMIN 500 MG TAB PO SCH (20:40)
[2017-05-29] MEDS ORDERED: ACCU-CHEK XX SCH (02:00)
[2017-05-29 02:08] VITALS: BP 156/72; RESP 22
[2017-05-29] MEDS: SOD CHLORIDE 0.9% 1,000 ML IV SCH ×2 (05:14→17:44)
[2017-05-29] MEDS: PANTOPRAZOLE (EC) 40 MG TAB PO SCH (06:00)
[2017-05-29 06:11] LABS: BASOPHILS % 0.4 % (0.0-2.0); EOSINOPHILS # 0.1 10^3/ul (0.0-0.5); EOSINOPHILS % 1.3 % (0.0-7.0); HEMATOCRIT 26.8 % (37.0-47.0); HEMOGLOBIN 8.6 g/dl (12.0-16.0); LYMPHOCYTES # 2.7 10^3/ul (0.8-2.9); LYMPHOCYTES % 33.5 % (15.0-51.0); MEAN CORPUSCULAR HGB CONC 32.1 g/dl (32.0-37.0); MEAN CORPUSCULAR VOLUME 93.4 fl (82.0-101.0); MEAN PLATELET VOLUME 12.2 fl (7.4-10.4); MONOCYTE # 0.8 10^3/ul (0.3-0.9); MONOCYTES % 9.7 % (0.0-11.0); NEUTROPHIL # 4.5 10^3/ul (1.6-7.5); NEUTROPHILS % 54.6 % (39.0-77.0); RED BLOOD COUNT 2.87 10^6/ul (4.20-5.40); RED CELL DISTRIBUTION WIDTH 14.8 % (11.5-14.5); WHITE BLOOD COUNT 8.2 10^3/ul (4.8-10.8)
[2017-05-29 06:31] LABS: CALCIUM 8.8 mg/dl (8.4-10.2); CREATININE 0.78 mg/dl (0.44-1.00); POTASSIUM 4.5 mmol/L (3.5-5.1)
[2017-05-29 06:52] LABS: PLATELET COUNT 351 10^3/UL (140-415); POSITIVE DIFF @See below
[2017-05-29] MEDS: ACCU-CHEK XX SCH ×4 (07:20→21:00)
[2017-05-29 07:49] VITALS: BP 166/77; RESP 21
--- NOTE | 2017-05-29 09:01 | PN ---
Date/Time of Note Date/Time of Note DATE: 05/29/17 TIME: 08:59 Assessment/Plan VTE Prophylaxis VTE Prophylaxis Intervention: ambulation, SCD's, other (Aspirin 325 mg) Lines/Catheters IV Catheter Type (from Nrsg): Saline Lock Salgado in Place (from Nrsg): No Assessment/Plan Assessment/Plan -Pain Meds as needed -Dressing is clean and intact. -OOB with PT -ASA/SCDs for DVT Prophylaxis -Continue monitoring with Internal Medicine -Patient Stable -Expected plan to discharge tomorrow home with home health. Subjective 24 Hr Interval Summary 81-year-old female postop day 2 status post right total knee arthroplasty. Patient continues with physical therapy as she has been up and walking throughout the hallways. Denies any acute overnight events. No chest pain/ tightness. Patient is sitting comfortably in chair currently. Constitutional: no complaints Pain Control: well controlled Exam/Review of Systems Vital Signs Vitals Vital Signs Date Time Temp Pulse Resp B/P Pulse Ox O2 Delivery O2 Flow Rate FiO2 05/29/17 07:49 97.6 71 21 166/77 96 05/27/17 20:30 Nasal Cannula 05/27/17 19:02 2.0 Intake and Output 05/28/17 05/28/17 05/29/17 14:59 22:59 06:59 Intake Total 300 ml 600 ml 500 ml Output Total 780 ml 600 ml Balance 300 ml -180 ml -100 ml Exam Free Text/Dictation -No complications with dressing intact. -5/5 Tibialis Anterior, EHL Gastrocnemius/Soleus and Peroneals -Seated comfortably in chair with knee at 90. Patient is able to extend the leg with about 5 lag from full extension. -Normal Sensation -Palpable DP/PT, Capillary Refill <2 secs -No Distal Edema -Negative Everardo Sign/No calf pain -Toes Freely Movable Constitutional: alert, oriented, well developed Results Result Diagram: 05/29/17 0457 05/29/17 0457 DEANNA ZAMUDIO PA-C May 29, 2017 09:01
[2017-05-29] MEDS: ASPIRIN (EC) 325 MG TAB PO SCH (09:03)
[2017-05-29] MEDS: FERROUS FUMARATE (SR) TAB PO SCH ×2 (09:03→20:41)
[2017-05-29] MEDS: TRIAMTERENE/HCTZ (37.5-25) CAP PO SCH (09:04)
[2017-05-29] MEDS: DOCUSATE SODIUM 100 MG CAP PO SCH ×2 (09:04→20:42)
[2017-05-29] MEDS: INSULIN ASPART [NOVOLOG] 3 ML PEN SC SCH ×7 (09:06→21:00)
--- NOTE | 2017-05-29 10:36 | PN ---
Date/Time of Note Date/Time of Note DATE: 05/29/17 TIME: 10:34 Assessment/Plan VTE Prophylaxis VTE Prophylaxis Intervention: SCD's Lines/Catheters [facility] Saline Lock Urinary Cath still in place: No Assessment/Plan Chief Complaint/Hosp Course patient post op total knee replacement doing well from surgical standpoint.DM could be under better control insulin coverage ordered and diet switched to diabetic diet Problems: Assessment/Plan patient progressing well blood sugars improving with current insulin regimen.doing better today Subjective 24 Hr Interval Summary Constitutional: no complaints Eyes: no complaints ENT: no complaints Respiratory: no complaints Cardiovascular: no complaints Gastrointestinal: no complaints Genitourinary: no complaints Musculoskeletal: no complaints Skin: no complaints Psychological: no complaints Exam/Review of Systems Vital Signs Vitals Vital Signs Date Time Temp Pulse Resp B/P Pulse Ox O2 Delivery O2 Flow Rate FiO2 05/29/17 07:49 97.6 71 21 166/77 96 05/27/17 20:30 Nasal Cannula 05/27/17 19:02 2.0 Intake and Output 05/28/17 05/28/17 05/29/17 15:00 23:00 07:00 Intake Total 300 ml 600 ml 500 ml Output Total 780 ml 600 ml Balance 300 ml -180 ml -100 ml Results Result Diagram: 05/29/17 0457 05/29/17 0457 Results 24 hrs Laboratory Tests Test 05/28/17 12:45 05/28/17 17:46 05/28/17 20:37 05/29/17 02:05 Bedside Glucose 259 H 326 H 246 H 223 H Test 05/29/17 04:57 05/29/17 08:35 White Blood Count 8.2 # Red Blood Count 2.87 #L Hemoglobin 8.6 #L Hematocrit 26.8 #L Mean Corpuscular Volume 93.4 Mean Corpuscular Hemoglobin 30.0 Mean Corpuscular Hemoglobin Concent 32.1 Red Cell Distribution Width 14.8 H Platelet Count 351 # Mean Platelet Volume 12.2 H Neutrophils % 54.6 Lymphocytes % 33.5 Monocytes % 9.7 Eosinophils % 1.3 Basophils % 0.4 Nucleated Red Blood Cells % 0.0 Neutrophils # 4.5 Lymphocytes # 2.7 Monocytes # 0.8 Eosinophils # 0.1 Basophils # 0.0 Nucleated Red Blood Cells # 0.0 Sodium Level 140 Potassium Level 4.5 Chloride Level 106 Carbon Dioxide Level 26 Anion Gap 13 Blood Urea Nitrogen 22 H Creatinine 0.78 Glucose Level 172 # Calcium Level 8.8 Bedside Glucose 166 Medications Medications Current Medications Sodium Chloride (NS) 1,000 ml @ 80 mls/hr [id number] IV Last administered on 20:50; Admin Dose 80 MLS/HR; Start 05/27/17 at 15:44 Oxycodone HCl (Roxicodone) 20 mg Q3H PRN PO PAIN LEVEL 8-10; Start 05/27/17 at 16:00 Oxycodone HCl (Roxicodone) 10 mg Q3H PRN PO PAIN LEVEL 4-7; Start 05/27/17 at 16:00 Oxycodone HCl (Roxicodone) 5 mg Q3H PRN PO PAIN LEVEL 1-3; Start 05/27/17 at 16:00 Zolpidem Tartrate (Ambien) 5 mg HS PRN PO INSOMNIA; Start 05/27/17 at 21:00 Aspirin (Ecotrin) 325 mg DAILY PO Last administered on 05/29/17 09:03; Admin Dose 325 MG; Start 05/28/17 at 09:00 Pantoprazole (Protonix Tab) 40 mg DAILY@06 PO ; Start 05/29/17 at 06:00 Docusate Sodium/ Ferrous Fumarate (Iam-Sequels) 1 tab BID PO Last administered on 05/29/17 09:03; Admin Dose 1 TAB; Start 05/28/17 at 09:00 Docusate Sodium (Colace) 200 mg BID PO Last administered on 05/29/17 09:04; Admin Dose 200 MG; Start 05/28/17 at 09:00; Stop 05/31/17 at 08:59 Simethicone (Mylicon) 80 mg TID PRN PO DISTENSION/GAS/BLOATING; Start at 16:00 Senna/Docusate Sodium (Senokot-S) 2 tab BID PRN PO CONSTIPATION; Start at 16:00 Magnesium Hydroxide (Milk Of Mag) 30 ml HS PRN PO CONSTIPATION; Start at 16:00 Bisacodyl (Dulcolax Supp) 10 mg DAILY PRN [place] CONSTIPATION; Start 05/27/17 at 16:00 Sodium Biphosphate/ Sodium Phosphate (Fleet Enema) 133 ml DAILY PRN [place] CONSTIPATION; Start 05/27/17 at 16:00 Diphenhydramine HCl (Benadryl) 25 mg Q4H PRN IM ITCHING OR RASH; Start at 16:00 Ketorolac Tromethamine (Toradol) 15 mg Q6 PRN IV PAIN; Start 05/27/17 at 16:00 ; Stop 05/31/17 at 15:59 Naloxone HCl (Narcan) 0.2 mg Q2M PRN IV DECREASED REPIRATORY RATE; Start at 16:00 Atorvastatin Calcium (Lipitor) 40 mg QHS PO Last administered on 05/28/17 20: 39; Admin Dose 40 MG; Start 05/27/17 at 21:00 Levothyroxine Sodium (Synthroid) 200 mcg DAILY PO Last administered on 08:51; Admin Dose 200 MCG; Start 05/28/17 at 09:00 Metformin HCl (Glucophage) 1,000 mg HS PO Last administered on 05/28/17 20:40 ; Admin Dose 1,000 MG; Start 05/27/17 at 21:00 Oxybutynin Chloride (Ditropan Xl) 5 mg QHS PO Last administered on 05/28/17 20:39; Admin Dose 5 MG; Start 05/27/17 at 21:00 Triamterene/HCTZ (Dyazide) 1 cap DAILY PO Last administered on 05/29/17 09:04 ; Admin Dose 1 CAP; Start 05/28/17 at 09:00 Miscellaneous Information 1 ea NOTE XX ; Start 05/28/17 at 01:15 Glucose (Glutose) 15 gm Q15M PRN PO DECREASED GLUCOSE; Start 05/28/17 at 01:15 Glucose (Glutose) 22.5 gm Q15M PRN PO DECREASED GLUCOSE; Start 05/28/17 at 01: 15 Dextrose (D50w Syringe) 25 ml Q15M PRN IV DECREASED GLUCOSE; Start 05/28/17 at 01:15 Dextrose (D50w Syringe) 50 ml Q15M PRN IV DECREASED GLUCOSE; Start 05/28/17 at 01:15 Glucagon (Glucagen) 1 mg Q15M PRN IM DECREASED GLUCOSE; Start 05/28/17 at 01: 15 Glucose (Glutose) 15 gm Q15M PRN BUCCAL DECREASED GLUCOSE; Start 05/28/17 at 01:15 Diagnostic Test (Pha) (Accu-Chek) 1 XX ; Start 05/29/17 at 02:00 Diagnostic Test (Pha) (Accu-Chek) 1 XX ; Start 05/30/17 at 02:00 Insulin Glargine (Lantus) 20 unit DAILY@20 SC ; Start 05/29/17 at 20:00 Linagliptin (Tradjenta) 5 mg DAILY PO ; Start 05/29/17 at 09:00 Celecoxib (Celebrex) 100 mg BID PO ; Start 05/29/17 at 21:00 BRANDON RUSH MD May 29, 2017 10:36
[2017-05-29] MEDS: LINAGLIPTIN 5 MG TABLET PO SCH (10:45)
[2017-05-29] MEDS: LEVOTHYROXINE 100 MCG TAB PO SCH (10:45)
--- NOTE | 2017-05-29 13:00 | CONS ---
Date/Time of Note Date/Time of Note DATE: 05/29/17 TIME: 12:58 Assessment/Plan Assessment/Plan Additional Assessment/Plan Status post knee surgery 05/27/2017 Hypertension Diabetes -Blood pressure on the higher side today the patient with increased pain and has been more anxious. Given history of diabetes, would benefit from BRODERICK inhibitor. We will start low-dose with holding parameters. Consultation Date/Type/Reason Admit Date/Time May 27, 2017 at 10:56 Initial Consult Date Type of Consultation: cv Referring Provider: CRISTAL MAGUIRE 24 HR Interval Summary Free Text/Dictation Patient a little more anxious today with increased pain. Blood pressure has been noticed on the higher side Exam/Review of Systems Vital Signs Vitals Vital Signs Date Time Temp Pulse Resp B/P Pulse Ox O2 Delivery O2 Flow Rate FiO2 05/29/17 07:49 97.6 71 21 166/77 96 05/27/17 20:30 Nasal Cannula 05/27/17 19:02 2.0 Intake and Output 05/28/17 05/28/17 05/29/17 15:00 23:00 07:00 Intake Total 300 ml 600 ml 500 ml Output Total 780 ml 600 ml Balance 300 ml -180 ml -100 ml Exam No apparent distress Constitutional: alert, obese, oriented Head: normocephalic Respiratory: clear to auscultation, normal air movement Cardiovascular: other (S1-S2 heard), regular rate and rhythm, systolic murmur Gastrointestinal: bowel sounds, non-tender, soft Extremities: edema (Trace) Results Result Diagram: 05/29/17 0457 05/29/17 0457 Results 24 hrs Laboratory Tests Test 05/28/17 17:46 05/28/17 20:37 05/29/17 02:05 05/29/17 04:57 Bedside Glucose 326 H 246 H 223 H White Blood Count 8.2 # Red Blood Count 2.87 #L Hemoglobin 8.6 #L Hematocrit 26.8 #L Mean Corpuscular Volume 93.4 Mean Corpuscular Hemoglobin 30.0 Mean Corpuscular Hemoglobin Concent 32.1 Red Cell Distribution Width 14.8 H Platelet Count 351 # Mean Platelet Volume 12.2 H Neutrophils % 54.6 Lymphocytes % 33.5 Monocytes % 9.7 Eosinophils % 1.3 Basophils % 0.4 Nucleated Red Blood Cells % 0.0 Neutrophils # 4.5 Lymphocytes # 2.7 Monocytes # 0.8 Eosinophils # 0.1 Basophils # 0.0 Nucleated Red Blood Cells # 0.0 Sodium Level 140 Potassium Level 4.5 Chloride Level 106 Carbon Dioxide Level 26 Anion Gap 13 Blood Urea Nitrogen 22 H Creatinine 0.78 Glucose Level 172 # Calcium Level 8.8 Test 05/29/17 08:35 05/29/17 11:17 05/29/17 12:38 Bedside Glucose 166 157 Hemoglobin A1c 8.7 H Medications Medications Current Medications Sodium Chloride (NS) 1,000 ml @ 80 mls/hr [id number] IV Last administered on 20:50; Admin Dose 80 MLS/HR; Start 05/27/17 at 15:44 Oxycodone HCl (Roxicodone) 20 mg Q3H PRN PO PAIN LEVEL 8-10; Start 05/27/17 at 16:00 Oxycodone HCl (Roxicodone) 10 mg Q3H PRN PO PAIN LEVEL 4-7; Start 05/27/17 at 16:00 Oxycodone HCl (Roxicodone) 5 mg Q3H PRN PO PAIN LEVEL 1-3; Start 05/27/17 at 16:00 Zolpidem Tartrate (Ambien) 5 mg HS PRN PO INSOMNIA; Start 05/27/17 at 21:00 Aspirin (Ecotrin) 325 mg DAILY PO Last administered on 05/29/17 09:03; Admin Dose 325 MG; Start 05/28/17 at 09:00 Pantoprazole (Protonix Tab) 40 mg DAILY@06 PO ; Start 05/29/17 at 06:00 Docusate Sodium/ Ferrous Fumarate (Iam-Sequels) 1 tab BID PO Last administered on 05/29/17 09:03; Admin Dose 1 TAB; Start 05/28/17 at 09:00 Docusate Sodium (Colace) 200 mg BID PO Last administered on 05/29/17 09:04; Admin Dose 200 MG; Start 05/28/17 at 09:00; Stop 05/31/17 at 08:59 Simethicone (Mylicon) 80 mg TID PRN PO DISTENSION/GAS/BLOATING; Start at 16:00 Senna/Docusate Sodium (Senokot-S) 2 tab BID PRN PO CONSTIPATION; Start at 16:00 Magnesium Hydroxide (Milk Of Mag) 30 ml HS PRN PO CONSTIPATION; Start at 16:00 Bisacodyl (Dulcolax Supp) 10 mg DAILY PRN [place] CONSTIPATION; Start 05/27/17 at 16:00 Sodium Biphosphate/ Sodium Phosphate (Fleet Enema) 133 ml DAILY PRN [place] CONSTIPATION; Start 05/27/17 at 16:00 Diphenhydramine HCl (Benadryl) 25 mg Q4H PRN IM ITCHING OR RASH; Start at 16:00 Ketorolac Tromethamine (Toradol) 15 mg Q6 PRN IV PAIN; Start 05/27/17 at 16:00 ; Stop 05/31/17 at 15:59 Naloxone HCl (Narcan) 0.2 mg Q2M PRN IV DECREASED REPIRATORY RATE; Start at 16:00 Atorvastatin Calcium (Lipitor) 40 mg QHS PO Last administered on 05/28/17 20: 39; Admin Dose 40 MG; Start 05/27/17 at 21:00 Levothyroxine Sodium (Synthroid) 200 mcg DAILY PO Last administered on 10:45; Admin Dose 200 MCG; Start 05/28/17 at 09:00 Metformin HCl (Glucophage) 1,000 mg HS PO Last administered on 05/28/17 20:40 ; Admin Dose 1,000 MG; Start 05/27/17 at 21:00 Oxybutynin Chloride (Ditropan Xl) 5 mg QHS PO Last administered on 05/28/17 20:39; Admin Dose 5 MG; Start 05/27/17 at 21:00 Triamterene/HCTZ (Dyazide) 1 cap DAILY PO Last administered on 05/29/17 09:04 ; Admin Dose 1 CAP; Start 05/28/17 at 09:00 Miscellaneous Information 1 ea NOTE XX ; Start 05/28/17 at 01:15 Glucose (Glutose) 15 gm Q15M PRN PO DECREASED GLUCOSE; Start 05/28/17 at 01:15 Glucose (Glutose) 22.5 gm Q15M PRN PO DECREASED GLUCOSE; Start 05/28/17 at 01: 15 Dextrose (D50w Syringe) 25 ml Q15M PRN IV DECREASED GLUCOSE; Start 05/28/17 at 01:15 Dextrose (D50w Syringe) 50 ml Q15M PRN IV DECREASED GLUCOSE; Start 05/28/17 at 01:15 Glucagon (Glucagen) 1 mg Q15M PRN IM DECREASED GLUCOSE; Start 05/28/17 at 01: 15 Glucose (Glutose) 15 gm Q15M PRN BUCCAL DECREASED GLUCOSE; Start 05/28/17 at 01:15 Diagnostic Test (Pha) (Accu-Chek) 1 ea 02 XX ; Start 05/29/17 at 02:00 Diagnostic Test (Pha) (Accu-Chek) 1 ea 02 XX ; Start 05/30/17 at 02:00 Insulin Glargine (Lantus) 20 unit DAILY@20 SC ; Start 05/29/17 at 20:00 Linagliptin (Tradjenta) 5 mg DAILY PO Last administered on 05/29/17t 10:45; Admin Dose 5 MG; Start 05/29/17 at 09:00 Celecoxib (Celebrex) 100 mg BID PO ; Start 05/29/17 at 21:00 Gorge Hammer DO May 29, 2017 13:00
[2017-05-29] MEDS: LISINOPRIL 5 MG TAB PO SCH (13:35)
[2017-05-29] MEDS ORDERED: INSULIN GLARGINE [LANtus] 3 ML PEN SC SCH (20:00)
[2017-05-29] MEDS: ATORVASTATIN 40 MG TAB PO SCH (20:41)
[2017-05-29] MEDS: OXYBUTYNIN (XL) 5 MG TAB PO SCH (20:41)
[2017-05-29] MEDS: metFORMIN 500 MG TAB PO SCH (20:42)
[2017-05-29] MEDS: CELECOXIB 100 MG CAP PO SCH (20:42)
[2017-05-29 21:40] VITALS: BP 138/63; RESP 19
[2017-05-30] MEDS ORDERED: ACCU-CHEK XX SCH (02:00)
[2017-05-30 02:54] VITALS: BP 129/76; RESP 19
[2017-05-30] MEDS: PANTOPRAZOLE (EC) 40 MG TAB PO SCH (06:00)
[2017-05-30] MEDS: SOD CHLORIDE 0.9% 1,000 ML IV SCH (06:14)
[2017-05-30] MEDS: ACCU-CHEK XX SCH ×2 (07:20→11:10)
[2017-05-30] MEDS: INSULIN ASPART [NOVOLOG] 3 ML PEN SC SCH ×4 (07:50→13:30)
[2017-05-30 07:56] VITALS: BP 134/67; RESP 18
--- NOTE | 2017-05-30 08:32 | PN ---
Date/Time of Note Date/Time of Note DATE: 05/30/17 TIME: 08:31 Assessment/Plan VTE Prophylaxis VTE Prophylaxis Intervention: SCD's Lines/Catheters IV Catheter Type (from Nrsg): Saline Lock Urinary Cath still in place: No Assessment/Plan Assessment/Plan Status post knee surgery 05/27/2017 Hypertension Diabetes -continue BP and DM management -ortho care -d/c plan ok from cardiac standpoint Subjective 24 Hr Interval Summary Free Text/Dictation The patient wiht no cahnge overnight Exam/Review of Systems Vital Signs Vitals Vital Signs Date Time Temp Pulse Resp B/P Pulse Ox O2 Delivery O2 Flow Rate FiO2 05/30/17 02:54 98.0 79 19 129/76 99 05/27/17 20:30 Nasal Cannula 05/27/17 19:02 2.0 Intake and Output 05/29/17 05/29/17 05/30/17 14:59 22:59 06:59 Intake Total 1600 ml Balance 1600 ml Results Result Diagram: 05/29/17 0457 05/29/17 0457 Results 24 hrs Laboratory Tests Test 05/29/17 08:35 05/29/17 11:17 05/29/17 12:38 05/29/17 17:32 Bedside Glucose 166 157 137 Hemoglobin A1c 8.7 H Test 05/29/17 20:39 Bedside Glucose 144 Medications Medications Current Medications Sodium Chloride (NS) 1,000 ml @ 80 mls/hr [id number] IV Last administered on 20:50; Admin Dose 80 MLS/HR; Start 05/27/17 at 15:44 Oxycodone HCl (Roxicodone) 20 mg Q3H PRN PO PAIN LEVEL 8-10; Start 05/27/17 at 16:00 Oxycodone HCl (Roxicodone) 10 mg Q3H PRN PO PAIN LEVEL 4-7; Start 05/27/17 at 16:00 Oxycodone HCl (Roxicodone) 5 mg Q3H PRN PO PAIN LEVEL 1-3; Start 05/27/17 at 16:00 Zolpidem Tartrate (Ambien) 5 mg HS PRN PO INSOMNIA; Start 05/27/17 at 21:00 Aspirin (Ecotrin) 325 mg DAILY PO Last administered on 05/29/17 09:03; Admin Dose 325 MG; Start 05/28/17 at 09:00 Pantoprazole (Protonix Tab) 40 mg DAILY@06 PO ; Start 05/29/17 at 06:00 Docusate Sodium/ Ferrous Fumarate (Iam-Sequels) 1 tab BID PO Last administered on 05/29/17 20:41; Admin Dose 1 TAB; Start 05/28/17 at 09:00 Docusate Sodium (Colace) 200 mg BID PO Last administered on 05/29/17 20:42; Admin Dose 200 MG; Start 05/28/17 at 09:00; Stop 05/31/17 at 08:59 Simethicone (Mylicon) 80 mg TID PRN PO DISTENSION/GAS/BLOATING; Start at 16:00 Senna/Docusate Sodium (Senokot-S) 2 tab BID PRN PO CONSTIPATION; Start at 16:00 Magnesium Hydroxide (Milk Of Mag) 30 ml HS PRN PO CONSTIPATION; Start at 16:00 Bisacodyl (Dulcolax Supp) 10 mg DAILY PRN [place] CONSTIPATION; Start 05/27/17 at 16:00 Sodium Biphosphate/ Sodium Phosphate (Fleet Enema) 133 ml DAILY PRN [place] CONSTIPATION; Start 05/27/17 at 16:00 Diphenhydramine HCl (Benadryl) 25 mg Q4H PRN IM ITCHING OR RASH; Start at 16:00 Ketorolac Tromethamine (Toradol) 15 mg Q6 PRN IV PAIN; Start 05/27/17 at 16:00 ; Stop 05/31/17 at 15:59 Naloxone HCl (Narcan) 0.2 mg Q2M PRN IV DECREASED REPIRATORY RATE; Start at 16:00 Atorvastatin Calcium (Lipitor) 40 mg QHS PO Last administered on 05/29/17 20: 41; Admin Dose 40 MG; Start 05/27/17 at 21:00 Levothyroxine Sodium (Synthroid) 200 mcg DAILY PO Last administered on 10:45; Admin Dose 200 MCG; Start 05/28/17 at 09:00 Metformin HCl (Glucophage) 1,000 mg HS PO Last administered on 05/29/17 20:42 ; Admin Dose 1,000 MG; Start 05/27/17 at 21:00 Oxybutynin Chloride (Ditropan Xl) 5 mg QHS PO Last administered on 05/29/17 20:41; Admin Dose 5 MG; Start 05/27/17 at 21:00 Triamterene/HCTZ (Dyazide) 1 cap DAILY PO Last administered on 05/29/17 09:04 ; Admin Dose 1 CAP; Start 05/28/17 at 09:00 Miscellaneous Information 1 ea NOTE XX ; Start 05/28/17 at 01:15 Glucose (Glutose) 15 gm Q15M PRN PO DECREASED GLUCOSE; Start 05/28/17 at 01:15 Glucose (Glutose) 22.5 gm Q15M PRN PO DECREASED GLUCOSE; Start 05/28/17 at 01: 15 Dextrose (D50w Syringe) 25 ml Q15M PRN IV DECREASED GLUCOSE; Start 05/28/17 at 01:15 Dextrose (D50w Syringe) 50 ml Q15M PRN IV DECREASED GLUCOSE; Start 05/28/17 at 01:15 Glucagon (Glucagen) 1 mg Q15M PRN IM DECREASED GLUCOSE; Start 05/28/17 at 01: 15 Glucose (Glutose) 15 gm Q15M PRN BUCCAL DECREASED GLUCOSE; Start 05/28/17 at 01:15 Diagnostic Test (Pha) (Accu-Chek) 1 ea 02 XX ; Start 05/30/17 at 02:00 Insulin Glargine (Lantus) 20 unit DAILY@20 SC Last administered on 05/29/17 20:46; Admin Dose 20 UNIT; Start 05/29/17 at 20:00 Linagliptin (Tradjenta) 5 mg DAILY PO Last administered on 05/29/17 10:45; Admin Dose 5 MG; Start 05/29/17 at 09:00 Celecoxib (Celebrex) 100 mg BID PO Last administered on 05/29/17 20:42; Admin Dose 100 MG; Start 05/29/17 at 21:00 Lisinopril (Zestril) 5 mg DAILY PO Last administered on 05/29/17 13:35; Admin Dose 5 MG; Start 05/29/17 at 13:00 RETA SCHULTZ MD May 30, 2017 08:31
[2017-05-30 09:16] LABS: BASOPHIL # 0.1 10^3/ul (0.0-0.1); BASOPHILS % 0.5 % (0.0-2.0); EOSINOPHILS # 0.2 10^3/ul (0.0-0.5); EOSINOPHILS % 1.9 % (0.0-7.0); HEMATOCRIT 35.8 % (37.0-47.0); HEMOGLOBIN 11.9 g/dl (12.0-16.0); LYMPHOCYTES # 2.3 10^3/ul (0.8-2.9); LYMPHOCYTES % 22.1 % (15.0-51.0); MEAN CORPUSCULAR HEMOGLOBIN 29.8 pg (29.0-33.0); MEAN CORPUSCULAR HGB CONC 33.2 g/dl (32.0-37.0); MEAN CORPUSCULAR VOLUME 89.5 fl (82.0-101.0); MEAN PLATELET VOLUME 11.2 fl (7.4-10.4); MONOCYTE # 0.9 10^3/ul (0.3-0.9); MONOCYTES % 9.2 % (0.0-11.0); NEUTROPHIL # 6.7 10^3/ul (1.6-7.5); NEUTROPHILS % 65.8 % (39.0-77.0); PLATELET COUNT 265 10^3/UL (140-415); RED CELL DISTRIBUTION WIDTH 14.8 % (11.5-14.5); WHITE BLOOD COUNT 10.2 10^3/ul (4.8-10.8)
[2017-05-30] MEDS: DOCUSATE SODIUM 100 MG CAP PO SCH (09:16)
[2017-05-30] MEDS: CELECOXIB 100 MG CAP PO SCH (09:16)
[2017-05-30] MEDS: LEVOTHYROXINE 100 MCG TAB PO SCH (09:16)
[2017-05-30] MEDS: FERROUS FUMARATE (SR) TAB PO SCH (09:16)
[2017-05-30] MEDS: ASPIRIN (EC) 325 MG TAB PO SCH (09:16)
[2017-05-30] MEDS: LINAGLIPTIN 5 MG TABLET PO SCH (09:17)
[2017-05-30] MEDS: LISINOPRIL 5 MG TAB PO SCH (09:19)
[2017-05-30] MEDS: TRIAMTERENE/HCTZ (37.5-25) CAP PO SCH (09:31)
[2017-05-30 09:38] LABS: CHOL/HDL RATIO 2.3 RATIO
[2017-05-30 09:39] LABS: CALCIUM 8.7 mg/dl (8.4-10.2); CREATININE 0.74 mg/dl (0.44-1.00); POTASSIUM 4.1 mmol/L (3.5-5.1)
[2017-05-30] MEDS ORDERED: LINA5TAB PO (10:24)
[2017-05-30] MEDS ORDERED: EMPA25TA PO (10:24)
[2017-05-30] MEDS ORDERED: LISI-313 PO (10:24)
--- NOTE | 2017-05-30 10:31 | PN ---
Date/Time of Note Date/Time of Note DATE: 05/30/17 TIME: 10:24 Assessment/Plan VTE Prophylaxis VTE Prophylaxis Intervention: SCD's Lines/Catheters IV Catheter Type (from Nrsg): Saline Lock Urinary Cath still in place: No Assessment/Plan Problems: (1) Type 2 diabetes mellitus with hyperglycemia Status: Chronic Comment: Cont. metformin 1,000 mg bid. However, this was not sufficient for glycemic control at home based on A1c and pt. should be on more medication on d/ c. Pt. doing well here on MDI but does not want to be on insulin after d/c. Have already added linagliptin and will also add empagliflozin w/ the hope that it will provide sufficient glycemic control after d/c (2) Essential (primary) hypertension Status: Chronic Comment: Cont. lisinopril and maxzide (3) Hypothyroidism Status: Chronic Comment: Cont. LT4 (4) Hyperlipidemia Status: Chronic Comment: Excellent control. Cont. statin (5) Urge incontinence Status: Chronic Comment: Cont. oxybutynin (6) Aftercare following right knee joint replacement surgery Status: Acute Comment: Doing well on POD#3. Likely ready for d/c. Will defer to primary team but ok for d/c from med perspective. Subjective 24 Hr Interval Summary Constitutional: improved, no complaints Respiratory: no complaints Cardiovascular: no complaints Gastrointestinal: no complaints Genitourinary: no complaints Musculoskeletal: bone/joint pain (R knee but tolerable and improved over all) Neurologic: no complaints Exam/Review of Systems Vital Signs Vitals VS - Last 72 Hours, by Label Date Time Temp Pulse Resp B/P Pulse Ox O2 Delivery O2 Flow Rate FiO2 05/30/17 07:56 97.8 89 18 134/67 96 05/30/17 02:54 98.0 79 19 129/76 99 05/29/17 21:40 98.3 84 19 138/63 99 05/29/17 07:49 97.6 71 21 166/77 96 05/29/17 02:08 97.5 82 22 156/72 97 05/28/17 19:55 97.5 75 22 152/70 97 05/28/17 07:52 98.2 79 19 125/75 98 05/27/17 23:45 98.2 92 18 130/63 98 05/27/17 20:30 Nasal Cannula 05/27/17 20:25 98.3 83 20 153/69 96 05/27/17 19:02 78 17 131/64 94 Nasal Cannula 2.0 05/27/17 18:19 78 17 135/64 98 Nasal Cannula 2.0 05/27/17 18:14 80 17 140/64 98 Nasal Cannula 2.0 05/27/17 18:09 82 17 131/61 98 Nasal Cannula 2.0 05/27/17 18:04 82 17 133/56 97 Nasal Cannula 2.0 05/27/17 17:59 82 17 133/52 97 Nasal Cannula 2.0 05/27/17 17:57 82 17 128/52 96 Nasal Cannula 2.0 05/27/17 17:52 84 18 132/64 98 Nasal Cannula 2.0 05/27/17 17:31 90 18 140/69 96 Nasal Cannula 2.0 05/27/17 17:19 92 18 128/67 96 Nasal Cannula 2.0 05/27/17 17:14 98.2 83 17 118/64 99 Mask 8.0 05/27/17 13:00 97.8 75 18 132/72 96 Room Air Vital Signs Date Time Temp Pulse Resp B/P Pulse Ox O2 Delivery O2 Flow Rate FiO2 05/30/17 07:56 97.8 89 18 134/67 96 05/27/17 20:30 Nasal Cannula 05/27/17 19:02 2.0 Intake and Output 05/29/17 05/29/17 05/30/17 14:59 22:59 06:59 Intake Total 1600 ml Balance 1600 ml Exam Constitutional: alert, obese, oriented Psych: nl mood/affect, no complaints Respiratory: clear to auscultation, normal air movement Cardiovascular: nl pulses, regular rate and rhythm, No edema, No murmurs/extra sounds, No rub Gastrointestinal: bowel sounds, nl liver, spleen, non-tender, soft, No mass, No rebound or guarding Musculoskeletal: nl extremities to inspection Extremities: normal pulses, No clubbing, No cyanosis, No edema Neurological: [employer] SAL[employer] II-XII intact, nl mental status, nl speech, nl strength Additional Comments Bedside Glucose - 72 Hours Test 05/27/17 13:13 05/27/17 17:19 05/27/17 20:52 05/28/17 08:44 Bedside Glucose 153mg/dL (70-220) 217mg/dL (70-220) 235mg/dL (70-220) H 304mg/dL (70-220) H Test 05/28/17 12:45 05/28/17 17:46 05/28/17 20:37 05/29/17 02:05 Bedside Glucose 259mg/dL (70-220) H 326mg/dL (70-220) H 246mg/dL (70-220) H 223mg/dL (70-220) H Test 05/29/17 08:35 05/29/17 12:38 05/29/17 17:32 05/29/17 20:39 Bedside Glucose 166mg/dL (70-220) 157mg/dL (70-220) 137mg/dL (70-220) 144mg/dL (70-220) Test 05/30/17 08:55 Bedside Glucose 132mg/dL (70-220) Results Result Diagram: 05/30/1782005/30/17 0821 Results 24 hrs Laboratory Tests Test 05/29/17 11:17 05/29/17 12:38 05/29/17 17:32 05/29/17 20:39 Hemoglobin A1c 8.7 H Bedside Glucose 157 137 144 Test 05/30/17 08:21 05/30/17 08:55 White Blood Count 10.2 # Red Blood Count 4.00 #L Hemoglobin 11.9 #L Hematocrit 35.8 #L Mean Corpuscular Volume 89.5 Mean Corpuscular Hemoglobin 29.8 Mean Corpuscular Hemoglobin Concent 33.2 Red Cell Distribution Width 14.8 H Platelet Count 265 # Mean Platelet Volume 11.2 H Neutrophils % 65.8 Lymphocytes % 22.1 Monocytes % 9.2 Eosinophils % 1.9 Basophils % 0.5 Nucleated Red Blood Cells % 0.0 Neutrophils # 6.7 Lymphocytes # 2.3 Monocytes # 0.9 Eosinophils # 0.2 Basophils # 0.1 Nucleated Red Blood Cells # 0.0 Sodium Level 137 Potassium Level 4.1 Chloride Level 100 Carbon Dioxide Level 28 Anion Gap 13 Blood Urea Nitrogen 21 H Creatinine 0.74 Glucose Level 129 # Calcium Level 8.7 Triglycerides Level 104 Cholesterol Level 124 LDL Cholesterol, Calculated 51 HDL Cholesterol 52 Cholesterol/HDL Ratio 2.3 Bedside Glucose 132 Medications Medications Current Medications Sodium Chloride (NS) 1,000 ml @ 80 mls/hr [id number] IV Last administered on 20:50; Admin Dose 80 MLS/HR; Start 05/27/17 at 15:44 Oxycodone HCl (Roxicodone) 20 mg Q3H PRN PO PAIN LEVEL 8-10; Start 05/27/17 at 16:00 Oxycodone HCl (Roxicodone) 10 mg Q3H PRN PO PAIN LEVEL 4-7; Start 05/27/17 at 16:00 Oxycodone HCl (Roxicodone) 5 mg Q3H PRN PO PAIN LEVEL 1-3; Start 05/27/17 at 16:00 Zolpidem Tartrate (Ambien) 5 mg HS PRN PO INSOMNIA; Start 05/27/17 at 21:00 Aspirin (Ecotrin) 325 mg DAILY PO Last administered on 05/30/17 09:16; Admin Dose 325 MG; Start 05/28/17 at 09:00 Pantoprazole (Protonix Tab) 40 mg DAILY@06 PO ; Start 05/29/17 at 06:00 Docusate Sodium/ Ferrous Fumarate (Iam-Sequels) 1 tab BID PO Last administered on 05/30/17 09:16; Admin Dose 1 TAB; Start 05/28/17 at 09:00 Docusate Sodium (Colace) 200 mg BID PO Last administered on 05/30/17 09:16; Admin Dose 200 MG; Start 05/28/17 at 09:00; Stop 05/31/17 at 08:59 Simethicone (Mylicon) 80 mg TID PRN PO DISTENSION/GAS/BLOATING; Start at 16:00 Senna/Docusate Sodium (Senokot-S) 2 tab BID PRN PO CONSTIPATION; Start at 16:00 Magnesium Hydroxide (Milk Of Mag) 30 ml HS PRN PO CONSTIPATION; Start at 16:00 Bisacodyl (Dulcolax Supp) 10 mg DAILY PRN [place] CONSTIPATION; Start 05/27/17 at 16:00 Sodium Biphosphate/ Sodium Phosphate (Fleet Enema) 133 ml DAILY PRN [place] CONSTIPATION; Start 05/27/17 at 16:00 Diphenhydramine HCl (Benadryl) 25 mg Q4H PRN IM ITCHING OR RASH; Start at 16:00 Ketorolac Tromethamine (Toradol) 15 mg Q6 PRN IV PAIN; Start 05/27/17 at 16:00 ; Stop 05/31/17 at 15:59 Naloxone HCl (Narcan) 0.2 mg Q2M PRN IV DECREASED REPIRATORY RATE; Start at 16:00 Atorvastatin Calcium (Lipitor) 40 mg QHS PO Last administered on 05/29/17 20: 41; Admin Dose 40 MG; Start 05/27/17 at 21:00 Levothyroxine Sodium (Synthroid) 200 mcg DAILY PO Last administered on 09:16; Admin Dose 200 MCG; Start 05/28/17 at 09:00 Metformin HCl (Glucophage) 1,000 mg HS PO Last administered on 05/29/17 20:42 ; Admin Dose 1,000 MG; Start 05/27/17 at 21:00 Oxybutynin Chloride (Ditropan Xl) 5 mg QHS PO Last administered on 05/29/17 20:41; Admin Dose 5 MG; Start 05/27/17 at 21:00 Triamterene/HCTZ (Dyazide) 1 cap DAILY PO Last administered on 05/30/17 09:31 ; Admin Dose 1 CAP; Start 05/28/17 at 09:00 Miscellaneous Information 1 ea NOTE XX ; Start 05/28/17 at 01:15 Glucose (Glutose) 15 gm Q15M PRN PO DECREASED GLUCOSE; Start 05/28/17 at 01:15 Glucose (Glutose) 22.5 gm Q15M PRN PO DECREASED GLUCOSE; Start 05/28/17 at 01: 15 Dextrose (D50w Syringe) 25 ml Q15M PRN IV DECREASED GLUCOSE; Start 05/28/17 at 01:15 Dextrose (D50w Syringe) 50 ml Q15M PRN IV DECREASED GLUCOSE; Start 05/28/17 at 01:15 Glucagon (Glucagen) 1 mg Q15M PRN IM DECREASED GLUCOSE; Start 05/28/17 at 01: 15 Glucose (Glutose) 15 gm Q15M PRN BUCCAL DECREASED GLUCOSE; Start 05/28/17 at 01:15 Diagnostic Test (Pha) (Accu-Chek) 1 ea 02 XX ; Start 05/30/17 at 02:00 Insulin Glargine (Lantus) 20 unit DAILY@20 SC Last administered on 05/29/17 20:46; Admin Dose 20 UNIT; Start 05/29/17 at 20:00 Linagliptin (Tradjenta) 5 mg DAILY PO Last administered on 05/30/17 09:17; Admin Dose 5 MG; Start 05/29/17 at 09:00 Celecoxib (Celebrex) 100 mg BID PO Last administered on 05/30/17 09:16; Admin Dose 100 MG; Start 05/29/17 at 21:00 Lisinopril (Zestril) 5 mg DAILY PO Last administered on 05/30/17 09:19; Admin Dose 5 MG; Start 05/29/17 at 13:00 MANE MAST MD May 30, 2017 10:31
--- NOTE | 2017-06-01 08:13 | DS ---
Date/Time of Note Date/Time of Note DATE: 06/01/17 TIME: 08:12 Discharge Summary Admission/Discharge Info Admit Date/Time May 27, 2017 at 10:56 Discharge Date/Time May 30, 2017 at 14:37 Discharge Diagnosis Status Post Right total knee arthroplasty Patient Condition: Good Hospital Course On the day of admission, the patient underwent right total knee arthroplasty Intraoperative complications: None Postoperative complications: None The patient was given prophylactic antibiotics and anticoagulants. On the day of surgery and first postoperative day patient was started on gait training and was taught usual restrictions following knee replacement On postoperative day 1 dressing was clean dry and intact. No complications were observed. On the day of discharge, the wound was clean and healing well; there was no sign of infection. Wound care instructions were discussed with the patient. Discharge Temperature: 97.8 Discharge White Blood Cell Count: 10.2 Discharge Hemoglobin: 11.9 The patient was discharged home with home health. Arrangements were made for visiting nurses and home health/physical therapy. The patient will be seen in office at scheduled postoperative evaluation date given on their preoperative exam. Should patient complain of any problems prior to scheduled postoperative evaluation date, they may call into outpatient clinic to determine if they need to be scheduled at sooner appointment to be seen immediately if needed. Discharge medications: As per medication reconciliation form Diet: Same as preadmission diet. This is Glen Stark PA-C dictating discharge summary for Dr. Floyd. Home Meds Active Scripts Empagliflozin (Jardiance) 25 Mg Tablet, 25 MG PO DAILY for 30 Days, #30 TAB 3 Refills Prov:MANE MAST MD 05/30/17 Lisinopril* (Lisinopril*) 5 Mg Tablet, 5 MG PO DAILY for 30 Days, #30 TAB 3 Refills Prov:MANE MAST MD 05/30/17 Linagliptin (TRADJENTA) 5 Mg Tablet, 5 MG PO DAILY for 30 Days, #30 TAB 3 Refills Prov:MANE MAST MD 05/30/17 Reported Medications Oxybutynin Chloride* (Ditropan* XL) 5 Mg Tabsr, 5 MG PO QHS, TAB.SA 05/27/17 Triamterene/Hctz* (Maxzide (37.5-25)*) 1 Each Tablet, 1 EACH PO DAILY, #30 TAB 05/27/17 Atorvastatin* (Atorvastatin*) 40 Mg Tablet, 40 MG PO QHS, #30 TAB 05/27/17 Metformin* (Glucophage*) 500 Mg Tab, 1000 MG PO HS, TAB 06/02/14 Levothyroxine Sodium* (Levothyroxine Sodium*) 200 Mcg Tablet, 200 MCG PO DAILY, TAB 06/02/14 Discontinued Reported Medications Aspirin (Low Dose Aspirin) 81 Mg Tablet.dr, 81 MG PO DAILY, #30 TAB 05/27/17 Multivits W-Fe,Other Min/Lut (CENTRUM SILVER ULTRA WOMEN TAB) 1 Each Tablet, 1 EACH PO DAILY 06/02/14 Triamterene-HCTZ* (Triamterene-HCTZ*) 1 Tab Tablet, 1 TAB PO DAILY 11/17/12 Follow-up Plan Follow up at post-op appointment given at your pre-op visit. Primary Care Provider MD ROBB Sommer KERBY PA-C Jun 01, 2017 08:13
== END 2017-05-30 14:37 | disposition home health service (06) | DRG 470 ==
LOC: REC 05-27 10:56 → MS1 05-27 19:20
PROVIDERS: ADMIT Orthopaedic Surgery; ATTEND Orthopaedic Surgery
PROC: 0SRC069 Replacement of Right Knee Joint with Oxidized Zirconium on Polyethylene Synthetic Substitute, Cemented, Open Approach (ICD-10-PCS; principal; 2017-05-27 13:30)
DX: M17.11 Unilateral primary osteoarthritis, right knee (principal); E11.65 Type 2 diabetes mellitus with hyperglycemia; I10 Essential (primary) hypertension; E66.01 Morbid (severe) obesity due to excess calories; Z68.38 Body mass index [BMI] 38.0-38.9, adult; E78.5 Hyperlipidemia, unspecified
CPT/HCPCS: 73560; 80048; 80061; 82962; 83036; 85025; 86850; 86900; 86901; 88304; 88311; 97110; 97116; 97163; 97167; 97530; C1713; C1776; J0131; J0171; J0690; J0735; J1100; J1815; J1885; J2250; J2405; J2765; J2795; J3010; J7030

== ENCOUNTER → 2017-06-12 | Outpatient (CLI) | payer MEDICARE, BC ==
[~2017-06-12] MED LIST changes: +ATOR40TA68 PO; +EMPA25TA PO; +LINA5TAB PO; +LISI-313 PO; +MAXZ25 PO; -MULT1TAB8 PO; +OXYB5TAB22 PO; -TRIA1TAB PO
--- NOTE | 2017-06-12 15:21 | RADRPT ---
PROCEDURE: RIGHT knee x-ray CLINICAL INDICATION: Knee pain TECHNIQUE: Weight bearing AP and lateral views of the knee were obtained. COMPARISON: CR KNEE 02/18/2017 FINDINGS: There is normal mineralization. No acute fracture or dislocation is seen. There is a small joint effusion. The patient is status post right knee replacement with appropriate position of the prosthesis. There is no significant soft tissue swelling. RPTAT: AA IMPRESSION: Small joint effusion. Status post right knee replacement with appropriate position of the prosthesis. .Breezy Shah MD, MD Date Time Electronically viewed and signed by .Breezy Shah MD, on 06/12/2017 15:21 .S/
--- NOTE | 2017-06-12 15:32 | PN ---
Date/Time of Note Date/Time of Note DATE: 06/12/17 TIME: 15:26 Outpatient Progress Note Chief Complaint 2 weeks status post right total knee replacement. HPI 81-year-old female presents today for 2 week postoperative appointment status post right total knee arthroplasty performed on 05/27/2017. Patient is very pleased status post surgery as she states that she is having no pain complaints. Patient is up and weightbearing without any difficulty. She states that her functionality has improved significantly status post surgery. She is still using one-point/single-point cane for assisted ambulation. She denies any falls or injury. Denies any chest pain/tightness. Denies any shortness of breath. Denies any calf pain. Review of Systems Const: No Fever, no chills, no Fatigue, normal appetite, no diaphoresis. Resp: No SOB, no wheezing, no chest pain. CV: No chest pain, no palpitaions, no MATTHEW. Physical Exam Blood pressure is 189/79, temperature is 97.8, pulse is 83, respiratory rate is 16, height is 5 foot 3 inches, weight is 215 pounds General Appearance: well-developed, well-nourished, in no acute distress. Right knee: Surgical wound is clean dry and intact. Healing well. No signs of infection.Patient is able to fully extend on exam today. She is able to flex up to 120. 5/5 strength on resistance with flexion and extension. Normal sensory examination to light touch. No tenderness to palpation on exam today. Gait is slightly abnormal with assisted ambulation using single-point cane. No pain complaints with ambulation. Imaging: X-ray of the Right knee performed on 06/12/2017 showing all components appearing well aligned, attached and integrated to the bone. No signs of any lucency between metal and bone. Allergies Coded Allergies: No Known Allergy (Unverified , 05/27/17) Family Hx Patient History: Cardiac disorder 32 MOTHER, , Age:60 years and older Assessment/Plan * Continue with postoperative physical therapy. Patient may gradually progress to independent ambulation without use of single-point cane. * Pain medication as needed although, patient states that she has had no use for pain medication as she has been doing very well status post surgery. * May discontinue aspirin at this time as she is up and moving. * Wound care discussed today. * Follow-up 6 weeks status post surgery for repeat evaluation. Patient made aware that she may follow-up sooner should there be any issue and she states understanding and compliance. Dr. Floyd present for exam today. Medications Home Meds Active Scripts Empagliflozin (Jardiance) 25 Mg Tablet, 25 MG PO DAILY for 30 Days, #30 TAB 3 Refills Prov:MANE MAST MD 05/30/17 Lisinopril* (Lisinopril*) 5 Mg Tablet, 5 MG PO DAILY for 30 Days, #30 TAB 3 Refills Prov:MANE MAST MD 05/30/17 Linagliptin (TRADJENTA) 5 Mg Tablet, 5 MG PO DAILY for 30 Days, #30 TAB 3 Refills Prov:MANE MAST MD 05/30/17 Reported Medications Oxybutynin Chloride* (Ditropan* XL) 5 Mg Tabsr, 5 MG PO QHS, TAB.SA 05/27/17 Triamterene/Hctz* (Maxzide (37.5-25)*) 1 Each Tablet, 1 EACH PO DAILY, #30 TAB 05/27/17 Atorvastatin* (Atorvastatin*) 40 Mg Tablet, 40 MG PO QHS, #30 TAB 05/27/17 Metformin* (Glucophage*) 500 Mg Tab, 1000 MG PO HS, TAB 06/02/14 Levothyroxine Sodium* (Levothyroxine Sodium*) 200 Mcg Tablet, 200 MCG PO DAILY, TAB 06/02/14 DEANNA ZAMUDIO PA-C Jun 12, 2017 15:32
--- NOTE | 2017-06-13 06:48 | HKNOTE ---
DATE OF SERVICE: 06/12/2017 CHIEF COMPLAINT: Right knee replacement. HISTORY OF PRESENT ILLNESS: Love is here for 2-week follow up on her right total knee replacemen t. The patient is progressing well and is quite pleased with her outcome. She is continuing physic al therapy at home. No history of fever or chills. PHYSICAL EXAMINATION: GENERAL: Shows a pleasant female. She is ambulating with a cane. MUSCULOSKELETAL: The right knee incision is healing well. There is mild swelling. No evidence of DVT or infection. Range of motion of the knee is 5 to 110 degrees. There is no neurovascular defic it. IMAGING: X-rays of the right knee show total knee replacement in good position with no evidence of loosening. ASSESSMENT AND PLAN: The patient is progressing well after right total knee replacement done about 2 weeks ago. She is advised to continue her physical therapy and follow up in 4 to 6 weeks. Dictated By: CRISTAL UPTON/NTS Conf#: [id number] DID#: [id number]
== END | disposition home or self-care (01) ==
LOC: HKI 14:24
PROVIDERS: ATTEND Orthopaedic Surgery
DX: Z09 Encounter for follow-up examination after completed treatment for conditions other than malignant neoplasm (principal); Z96.651 Presence of right artificial knee joint

== ENCOUNTER → 2017-07-10 | Outpatient (CLI) | END | disposition home or self-care (01) ==

== ENCOUNTER → 2017-08-14 | Outpatient (CLI) | END | disposition home or self-care (01) ==

== ENCOUNTER → 2018-05-17 | Outpatient (CLI) | END | disposition home or self-care (01) ==